=== PATIENT | female | born 1975 | race Caucasian/White ===

== ENCOUNTER → 2020-03-05 | Outpatient (CLI) | payer SELFPAY | END | disposition home or self-care (01) | LOC: MTDU 17:19 | PROVIDERS: PCP Family Medicine | DX: Z20.828 Contact with and (suspected) exposure to other viral communicable diseases (principal) | CPT/HCPCS: 87635; C9803; U0003 ==

== ENCOUNTER 2020-12-27 15:09 | Emergency (ER) | payer OTHER, SELFPAY ==
[2020-12-27 15:12] VITALS: BP 157/102; PULSE 91; RESP 23; TEMP 36.9; O2SAT 100; BMI 26.9
[2020-12-27 15:21] VITALS: O2SAT 99
--- NOTE | 2020-12-27 15:21 | EKG12_ITS ---
Test Reason : CP Blood Pressure : / mmHG Vent. Rate : 094 BPM Atrial Rate : 094 BPM P-R Int : 110 ms QRS Dur : 074 ms QT Int : 362 ms P-R-T Axes : 062 050 037 degrees QTc Int : 452 ms Sinus rhythm with short [place] Otherwise normal ECG Confirmed by DAMIAN MACEDO, ELDA ([id number]), primer expeditor and drier HOANG YEE ([id number]) on 12/30/2020 9:37:00 AM Referred By: ADARSH Confirmed By:ELDA SALGADO MD
--- NOTE | 2020-12-27 15:21 | CT_ITS ---
STUDY: CTA CHEST REASON FOR EXAM: Female, 45 years old. chest pain RADIATION DOSAGE (If Supplied By Facility): CTDIvol = ( 7.17 ) mGy, DLP = ( 247.81 ) mGycm TECHNIQUE: The examination was performed with the intravenous administration of IV 100mL Isovue-370. Post-processing of the angiographic images was performed, with multiplanar reformation and 3D reconstruction. Individualized dose optimization techniques were used for this CT. COMPARISON: None. FINDINGS: Normal enhancement of the main pulmonary artery and right and left pulmonary arteries. Normal enhancement of the bilateral peripheral pulmonary arteries. There is no demonstrated pulmonary embolism. Mild atherosclerosis of the descending thoracic aorta and origin of the left subclavian artery. There is no demonstrated aortic dissection. Normal heart and pericardium. Normal mediastinum. Normal hilar regions. Normal visualized trachea and bronchi. The lungs are hyper expanded, with flattening of the hemidiaphragms. Mild emphysematous changes predominantly in the upper lungs. Mild atelectasis in the lung bases. Focal area of hyperlucency of the medial left lower lobe with artery extending from this hyperlucent segment of the lateral descending thoracic aorta (pulmonary sequestration). There are calcifications and dilated bronchi in the medial left lower lobe. Normal pleura. Normal chest wall structures. No destructive bony process. There are surgical clips in the gallbladder fossa consistent with a prior cholecystectomy. CT/CTA Chest W/WO Contrast IMPRESSION: 1. No central or segmental pulmonary embolism. 2. Mild centrilobular emphysema. 3. Medial left lower lobe pulmonary sequestration. Nonemergent surgical consultation recommended. Electronically Signed: David Jennings MD ([place]) at 16:42 EDT , Service support ,
--- NOTE | 2020-12-27 15:23 | EDS_ITS ---
HPI History of Present Illness Chief Complaint: Chest Pain Detail of Chief Complaint: Patient presents with pain in her upper back x4 days Informant: patient Narrative Narrative: Patient presents with pain in her upper back x4 days. At times with movement she will have the pain radiate through the front of her chest. She denies any injury to her back but does have history of chronic back pain. Patient states that the pain initially woke her up from sleep. Today she try to go to work but felt short of breath and lightheaded so they called the squad for her. She is never had pain like this before. No history of PE or DVT. No fam shad history of aortic aneurysms or dissections. Patient states that her granddaughter had RSV about 3 to 4 weeks ago and really seem to get sick at that time. She does complain of a slight cough which is chronic. Her cough been nonproductive. She is had no fevers. Currently rates her pain a 6 out of 10 and much worse with breathing and movement. Prior similar symptoms: No PFSH PFSH Medical History (Updated 12/27/20 @ 17:[address] Theodore Hammonds, DO) Cholecystectomy planned Mitral valve prolapse Home Medications paroxetine HCl [Paxil] 60 mg PO DAILY 12/27/20 [History Last Taken Unknown] quetiapine 25 mg PO QHS 12/27/20 [History Last Taken Unknown] Allergy/AdvReac Type Severity Reaction Status Date / Time alprazolam [From Xanax] Allergy Vomiting Verified 12/27/20 15:10 codeine Allergy Other Verified 12/27/20 15:10 Surgical History (Updated 12/27/20 @ 15:16 by Renee Faulkner) H/O: hysterectomy Social History Smoking Status: Current every day smoker tobacco type: cigarettes ROS ROS ED Constitutional Constitutional ED: Reports systems reviewed and no addt'l complaints, except as documented; Denies body ache(s), change in weight or chills Eyes Eyes: Denies acute decrease in peripheral vision, change in vision, double vision or loss of vision ENT ENT ED: Reports none; Denies ear pain, lip swelling, loss taste/smell, neck pain, otalgia or sore throat Cardiovascular Cardiovascular: Reports none and chest pain; Denies abdominal pain, chest pain with activity, leg edema, lightheadedness, palpitations, rapid heart rate or syncope Respiratory/Chest Respiratory/Chest: Reports none, cough and dyspnea; Denies change in mental status, dry cough, hemoptysis, shortness of breath at rest or shortness of breath with exertion Gastrointestinal Gastrointestinal: Reports none; Denies abdominal pain, change in stool character, diarrhea, hematemesis, hematochezia, melena, rectal bleeding or vomiting Genitourinary Genitourinary ED: Reports none; Denies abdominal discomfort, anuria, dysuria, genital pain or polyuria Musculoskeletal Musculoskeletal: Reports none and back pain; Denies arthralgias, difficulty walking, extremity pain, muscle weakness or myalgias Integumentary Reports none; Denies abscess or rash Neurologic Neurologic: Reports none; Denies abnormal gait, confusion, focal weakness, frequent falls, headache(s), loss of vision, numbness, paresthesias, radicular pain, vertigo or weakness Psychiatric Psychiatric: Reports systems reviewed and no addt'l complaints, except as documented and none; Denies behavioral changes, confusion, difficulty concentrating, hallucinations, suicidal ideation, tactile hallucinations or visual hallucinations Endocrine Endocrinology: Denies none, cold intolerance, excessive sweating, fatigue or heat intolerance Hematologic/Lymphatic Hematologic/Lymphatic: Reports none; Denies anemia, easy bleeding or easy bruising Allergic/Immunologic Allergic/Immunologic ED: Denies as per HPI, none, lip swelling, mouth swelling, throat swelling, tongue swelling or hives EXAM Physical Exam Const Vital Signs: 12/27/20 15:12 12/27/20 15:21 12/27/20 16:29 Temperature 98.4 F Temperature Source Temporal Pulse Rate 91 72 Respiratory Rate 23 H 16 Blood Pressure 157/102 H 147/92 H Blood Pressure Mean 120 110 Pulse Ox 100 99 98 Oxygen Delivery Method Room Air Room Air Room Air Positive well nourished and well developed General Appearance ED: well developed and NAD HEENT Reports TM's clear and moist mucous membranes normocephalic and atraumatic; Negative for trauma or tenderness Tympanic Membrane ED: Yes TM's clear Eyes PERRL and EOMs intact bilaterally General Eye ED: Negative for pale conjunctiva or scleral icterus Neck no lymphadenopathy, supple and no JVD General: Negative for tenderness Chest Wall inspection of chest normal and palpation of chest normal Chest: Negative for tenderness Resp normal respiratory effort and clear to auscultation bilaterally Effort and Inspection: Negative for respiratory distress or pain with movement Auscultation: Negative for rhonchi, wheezes or diminished lung sounds Cardio regular rate, regular rhythm, S1 normal heart sound, S2 normal heart sound and no murmurs Peripheral Pulses: pulses 2+ throughout GI normal to inspection, nondistended, normoactive bowel sounds, soft to palpation, non-tender, non-distended and no masses Back/Spine no CVA tenderness and no thoracic nor lumbar tenderness Back/Spine Narrative: Patient has tenderness palpation over the left upper thoracic paraspinal musculature that seems to reproduce her pain. Pain is located just medial to the scapula on the left. Extremity normal to inspection General Extremety ED: Negative for edema General Extremity: Negative for edema Neuro oriented x3, CN's II-XII intact bilaterally, no sensory deficits noted and gait normal Sensorium / Orientation: awake, alert, oriented to person, oriented to place and oriented to time Motor Exam: strength 5/5 throughout and strength abnormal Psych mental status grossly normal Skin no rashes or lesions noted and no wounds MDM MDM MDM Narrative Medical decision making narrative: Patient is now anything for pain in the emergency department. She was noted to have a pulmonary sequestration on the left which the patient is known about and has seen a locomotive repairer diesel for. I spoke with Dr. Hurley here the locomotive repairer diesel on-call who recommended outpatient follow-up with the cardiothoracic surgeon. I discussed case with Dr. Brizuela her primary care physician as well who will follow patient up and refer. At this point I do not feel patient is having acute coronary syndrome. She denies anything for pain for home. I suspect patient likely has musculoskeletal back pain or thoracic nerve impingement potentially. Lab Data Attestation: I reviewed the patient's lab results. Labs: Laboratory Results - last 24 hr 12/27/20 12/27/20 15:35 15:35 WBC 10.9 RBC 4.38 Hgb 12.9 Hct 38.4 MCV 87.7 MCH 29.5 MCHC 33.6 RDW Std Deviation 41.2 RDW Coeff of David 12.9 Plt Count 326 MPV 9.6 Immature Gran % (Auto) 0.500 Neut % (Auto) 64.1 Lymph % (Auto) 24.7 [place] % (Auto) 9.6 Eos % (Auto) 0.6 Baso % (Auto) 0.5 Absolute Neuts (auto) 7.0 Absolute Lymphs (auto) 2.68 Nucleated RBC % 0 Sodium 133 L Potassium 3.6 Chloride 97 L Carbon Dioxide 26.0 Anion Gap 10 BUN 8 Creatinine 0.81 Estim Creat Clear Calc 74.14 Est GFR (MDRD) Af Amer 98 Est GFR (MDRD) Non-Af 81 BUN/Creatinine Ratio 9.9 L Glucose 88 Calcium 9.9 Troponin I High Sens 4.0 Lipase 127 Radiography Chest X-Ray - ED: 1 View Diagnostic Testing: Radiology Impression Chest CTA 12/27/20 15:21 IMPRESSION: 1. No central or segmental pulmonary embolism. 2. Mild centrilobular emphysema. 3. Medial left lower lobe pulmonary sequestration. Nonemergent surgical consultation recommended. Electronically Signed: David Jennings MD ([place]) at 16:42 EDT , Service support , Chest X-Ray 12/27/20 16:05 IMPRESSION: 1. Left lower lobe atelectasis versus early infiltrate. Electronically Signed: David Jennings MD ([place]) at 16:25 EDT , Service support , 1 view chest x-ray obtained interpreted by myself as increased markings left lower lobe suspect atelectasis. Radiology in agreement although they cannot rule out early infiltrate. EKG Initial EKG: Attestation: I personally reviewed and interpreted this EKG as follows: Comments: Sinus rhythm with a ventricular rate of 94 bpm with short [place] Discharge Plan Triage Chief Complaint: Chest Pain ED Provider: Theodore Hammonds Dx/Rx/DC Orders Clinical Impression: Back pain, Chest pain Instructions: ED Back Pain (Acute or Chronic), ED Chest Pain, Uncertain Cause Prescriptions: No Action quetiapine 25 mg tablet 25 mg PO QHS RF: 0 paroxetine HCl [Paxil] 30 mg tablet 60 mg PO DAILY RF: 0 Primary Care Provider: Colby Brizuela Referrals: Colby Brizuela MD [Primary Care Provider] - 3-5 Days Disposition Disposition: Home, Self Care
[2020-12-27] MEDS: 0.9% Normal Saline 1,000 ML 150 ML IV (15:41)
[2020-12-27 15:46] LABS: Absolute Lymphocyte Count 2.68 X10^3/uL (0.83-4.51); Basophil# 0.05 X10^3/uL; Basophil% 0.5 % (0-1); Eosinophil# 0.07 X10^3/uL; Eosinophils% 0.6 % (0-5); Hematocrit 38.4 % (37-47); Hemoglobin 12.9 g/dL (12.0-15.0); Lymphocyte # 2.68 X10^3/ul (0.83-4.51); Lymphocyte % 24.7 % (19-41); Mean Corp Hgb Conc 33.6 g/dL (32-36); Mean Corpuscular Hgb 29.5 pg (27.0-32.0); Mean Corpuscular Volume 87.7 fL (81-99); Mean Platelet Vol. 9.6 fl (6.2-12.0); Monocyte# 1.04 X10^3/uL; Monocyte% 9.6 % (0-10); NRBC Flagged by Analyzer 0 % (0-5); Neutrophil # 6.98 X10^3/uL (2.7-7.7); Neutrophil % 64.1 % (47-70); Platelet Count 326 K/mm3 (150-450); RBC Distribution Width CV 12.9 % (11.6-14.6); RBC Distribution Width SD 41.2 fl (35.1-43.9); Red Blood Count 4.38 M/mm3 (4.2-5.4); White Blood Count 10.9 K/mm3 (4.4-11.0)
--- NOTE | 2020-12-27 16:05 | RAD_ITS ---
STUDY: X-RAY CHEST REASON FOR EXAM: Female, 45 years old. chest pain TECHNIQUE: AP COMPARISON: 08/27/2012 FINDINGS: There is slight reticulation projecting over the left lung base, new since the prior study. There is no demonstrated pleural abnormality. Normal size heart. Normal mediastinum and mckinley. Normal visualized pulmonary arteries. Normal visualized aortic arch and descending thoracic aorta. No acute bony process. There is no demonstrated abnormality of the visualized soft tissue structures of the upper abdomen. RAD/Chest 1 View (Portable) IMPRESSION: 1. Left lower lobe atelectasis versus early infiltrate. Electronically Signed: David Jennings MD ([place]) at 16:25 EDT , Service support ,
[2020-12-27 16:17] LABS: Anion Gap 10 (5-15); BUN 8 mg/dL (7-18); BUN/Creat Ratio 9.9 RATIO (10-20); Calcium,Total 9.9 mg/dL (8.5-10.1); Chloride 97 mmol/L (98-107); Creatinine, Serum 0.81 mg/dL (0.55-1.02); EST Glomerular Filtration Rate 81 mL/min (>60); Est Glom Filt Rate - Afr Amer 98 mL/min (>60); Estimated Creatinine Clearance 74.14 ml/min; Glucose 88 mg/dL (74-106); Lipase 127 U/L (73-393); Potassium 3.6 mmol/L (3.5-5.1); Sodium Level 133 mmol/L (136-145)
[2020-12-27 16:29] VITALS: BP 147/92; PULSE 72; RESP 16; O2SAT 98
[2020-12-27 17:24] VITALS: BP 155/93; PULSE 82; RESP 19; O2SAT 97
== END 2020-12-27 17:30 | disposition home or self-care (01) ==
PROVIDERS: Emergency Provider Emergency Medicine; PCP Family Medicine
DX: M54.6 Pain in thoracic spine (principal); R07.9 Chest pain, unspecified; F17.210 Nicotine dependence, cigarettes, uncomplicated
CPT/HCPCS: 71045; 71275; 80048; 83690; 84484; 85025; 87426; 93005; 96360; 96361; 99285; Q9967; A4216

== ENCOUNTER → 2021-01-13 07:54 | Outpatient (CLI) | payer OTHER, SELFPAY ==
[2020-12-27 15:12] VITALS: BMI 26.9
--- NOTE | 2021-01-13 07:58 | RAD_ITS ---
STUDY: X-RAY - THORACIC SPINE REASON FOR EXAM: Female, 45 years old. BACK PAIN TECHNIQUE: 3 view(s) of the thoracic spine were obtained. COMPARISON: None. FINDINGS: Normal kyphosis of the thoracic spine. There is no substantial scoliosis. There is demineralization of the thoracic spine with endplate spondylosis. There is multilevel disc space narrowing of the thoracic spine. The soft tissue structures are unremarkable. RAD/Thoracic Spine 3 Views IMPRESSION: Multilevel disc space narrowing and spondylosis. Electronically Signed: Juanito Chacon MD at 15:02 EDT , Service support ,
== END ==
LOC: RAD 07:57
PROVIDERS: PCP Family Medicine; Referring Provider Anesthesiology Pain Medicine; Visit Provider Anesthesiology Pain Medicine
DX: M54.6 Pain in thoracic spine (principal)
CPT/HCPCS: 72072

== ENCOUNTER 2023-07-05 17:30 | Emergency (ER) | payer OTHER, SELFPAY ==
[2023-07-05 17:32] VITALS: BP 138/91; PULSE 91; RESP 16; TEMP 36.6; O2SAT 99; BMI 26.2
--- NOTE | 2023-07-05 17:39 | ED.RN ---
PT STATES SHE DOES NOT WANT SEEN AFTER BP OF 138/91. PT STATES SHE WORKS [facility] [employer], WILL RE CHECK PRESSURES AND RETURN FOR ANY CONCERNS.
--- OUTSIDE RECORDS SUMMARY | 2023-07-05 18:10 | XMS RPT_ITS | CCD ---
Author Name Unknown Address [address] [place] [address] Organization [facility] Care Team Providers Care Brand Activation Manager Name Role Phone Peewee Brizuela MD Primary Care Provider [phone] CARROL TAYLOR Attending Unavailable PEEWEE BRIZUELA Primary Care Unavailable Peewee Brizuela MD Primary Care Provider [phone] DOM MCFADDEN Attending Unavailable DOM MCFADDEN Referring Unavailable PEEWEE BRIZUELA Primary Care Unavailable DOM MCFADDEN Referring Unavailable PEEWEE BRIZUELA Primary Care Unavailable LESA, DOM T Referring Unavailable PEEWEE BRIZUELA Primary Care Unavailable HOANG WEATHERS Attending Unavailable LESA DOM Saud Referring Unavailable CHATA, PEEWEE Addison Primary Care Unavailable CHATA, PEEWEE Addison Primary Care Unavailable PEEWEE BRIZUELA Primary Care Unavailable PEEWEE BRIZUELA Attending Unavailable PEEWEE BRIZUELA Primary Care Unavailable PEEWEE BRIZUELA Referring Unavailable CHATA, PEEWEE Addison Referring Unavailable CHATA, PEEWEE Addison Primary Care Unavailable HOANG WEATHERS Referring Unavailable CHATA, PEEWEE Addison Primary Care Unavailable PEEWEE BRIZUELA Primary Care Unavailable PEEWEE BRIZUELA Attending Unavailable LESA, DOM T Attending Unavailable PEEWEE BRIZUELA Primary Care Unavailable PEEWEE BRIZUELA Referring Unavailable DOM MCFADDEN Attending Unavailable PEEWEE BRIZUELA Primary Care Unavailable PEEWEE BRIZUELA Primary Care Unavailable PEEWEE BRIZUELA Referring Unavailable LESA, DOM T Referring Unavailable LESA, DOM T Attending Unavailable PEEWEE BRIZUELA Primary Care Unavailable PEEWEE BRIZUELA Primary Care Unavailable JACINTA MCNAIR Attending Unavailable PEEWEE BRIZUELA Primary Care Unavailable Allergies Allergy Classification Reported Allergen(s) Allergy Type Date of Onset Reaction(s) Facility (15 sources) ALPRAZolam; Translations: [ALPRAZOLAM] Drug Allergy 9 GI Upset [facility] (15 sources) Codeine; Translations: [CODEINE] Drug Allergy 1 Vomiting [facility] Work Phone: (15 sources) Morphinan opioid; Translations: [OPIOIDS - MORPHINE ANALOGUES] Propensity to adverse reactions to drug 9 Contraindicatio n-Medical Surgical [facility] Work Phone: (15 sources) Propoxyphene N-Acetaminophen; Translations: [PROPOXYPHENE N-ACETAMINOPHEN] Drug Allergy 3 GI Upset [facility] Medications Current Medications Medication Drug Class(es) Dates Sig (Normalized) Sig (Original) amoxicillin 875 mg / clavulanate 125 mg oral tablet (1 source) Penicillin-class Antibacterial Start: 03-22-2023 End: 03-27-2023 take 1 tablet by mouth twice daily amoxicillin-clavulan ic acid (AUGMENTIN) 875-125 mg per tablet Indications: Sinobronchitis Take 1 tablet by mouth two times a day for 5 days. 10 tablet 0 03/22/2023 03/27/2023 Active Completed/Discontinued Medications Medication Drug Class(es) Dates Sig (Normalized) Sig (Original) [id number] 200 actuat albuterol 0.09 mg/actuat metered dose inhaler (9 sources) beta2-Adrenergic Agonist Start: 03-22-2023 take 2 puff(s) by inhalation every four hours as needed for wheezing albuterol HFA (PROVENTIL HFA, VENTOLIN HFA) 90 mcg/actuation inhaler Indications: Sinobronchitis Inhale 2 Puffs as instructed every 4 hours as needed for wheezing/shortness of breath. 1 Each 0 03/22/2023 Active Problems Active Problems Problem Classification Problem Date Documented Da te Episodic/Chronic Anxiety disorders (13 sources) Anxiety; Translations: [Anxiety disorder, unspecified] Onset: 9 11-02-2018 Chronic Disorders of lipid metabolism (3 sources) Mixed hyperlipidemia; Translations: [Mixed hyperlipidemia] Onset: 3 Chronic Esophageal disorders (15 sources) Gastroesophageal reflux disease; Translations: [Gastro-esophageal reflux disease without esophagitis] Onset: 3 Chronic Esophageal disorders (2 sources) Esophageal disorders; Translations: [Gastroesophageal reflux disease with esophagitis, unspecified whether hemorrhage] Onset: 3 Fluid and electrolyte disorders (1 source) Hypokalemia; Translations: [Hypokalemia] Episodic Gastritis and duodenitis (3 sources) Gastritis; Translations: [Gastritis, unspecified, without bleeding] Onset: 3 04-08-2023 Episodic Gastrointestinal hemorrhage (3 sources) Hematochezia; Translations: [Melena] Onset: 3 04-04-2023 Episodic Immunizations and screening for infectious disease (1 source) Encounter for screening for human immunodeficiency virus [HIV]; Translations: [Screening for HIV (human immunodeficiency virus)] Onset: 3 Episodic Nausea and vomiting (1 source) Nausea; Translations: [Nausea] Episodic Nutritional deficiencies (13 sources) Vitamin D deficiency; Translations: [Vitamin D deficiency, unspecified] Onset: 3 09-15-2012 Chronic Other gastrointestinal disorders (1 source) Abdominal bloating; Translations: [Abdominal distension (gaseous)] Episodic Other gastrointestinal disorders (3 sources) Epigastric fullness; Translations: [Epigastric swelling, mass or lump] Episodic Other gastrointestinal disorders (1 source) Acute constipation; Translations: [Constipation, unspecified] 04-08-2023 Episodic Other gastrointestinal disorders (1 source) Epigastric mass; Translations: [Epigastric swelling, mass or lump] 04-08-2023 Episodic Other gastrointestinal disorders (1 source) Constipation, unspecified; Translations: [Acute constipation] Onset: 3 Episodic Other gastrointestinal disorders (2 sources) Epigastric swelling, mass or lump; Translations: [Epigastric mass] Onset: 3 Episodic Other liver diseases (1 source) Alkaline phosphatase raised; Translations: [Abnormal levels of other serum enzymes] Episodic Other screening for suspected conditions (not mental disorders or infectious disease) (3 sources) Patient encounter status; Translations: [Encounter for screening for malignant neoplasm of colon] Episodic Other upper respiratory infections (1 source) Chronic sinusitis; Translations: [Chronic sinusitis, unspecified] 03-22-2023 Chronic Residual codes; unclassified (1 source) Flushing; Translations: [Flushing] Episodic Substance-related disorders (13 sources) History of substance abuse; Translations: [Other psychoactive substance abuse, in remission] 11-02-2018 Chronic Past or Other Problems Problem Classification Problem Date Documented Date Episodic/Chronic Abdominal pain (8 sources) Epigastric pain; Translations: [Epigastric pain] Onset: 10-05-2022 Episodic Other circulatory disease (1 source) Other specified symptoms and signs involving the circulatory and respiratory systems; Translations: [Chronic throat clearing] Onset: 10-06-2022 Episodic Other connective tissue disease (13 sources) Tendinitis of hip; Translations: [Other specified enthesopathies of unspecified lower limb, excluding foot] Onset: 11-06-2012 11-06-2012 Episodic Other disorders of stomach and duodenum (1 source) Other diseases of stomach and duodenum; Translations: [Retained food in stomach] Onset: 10-06-2022 Episodic Residual codes; unclassified (1 source) Flushing; Translations: [Hot flashes] Onset: 08-16-2022 Episodic Results Test Name Value Interpretation Reference Range Facil ity Vital Signs Date Time Vital Sign Value Performing Clinician Parminder ram 04-08-2023 15:57-0400 Body height 162.6 cm Peewee Brizuela MD Work Phone: [facility] 04-08-2023 15:57-0400 Body temperature 97.81 [degF] Peewee Brizuela MD Work Phone: [facility] 04-08-2023 15:57-0400 Body weight 68.95 kg Peewee Brizuela MD Work Phone: [facility] 04-08-2023 15:57-0400 Diastolic blood pressure 78 mm[Hg] Peewee Brizuela MD Work Phone: [facility] 04-08-2023 15:57-0400 Heart rate 79 /min Peewee Brizuela MD Work Phone: [facility] 04-08-2023 15:57-0400 SaO2% (BldA) [Mass fraction] 99 % Peewee Brizuela MD Work Phone: [facility] 04-08-2023 15:57-0400 Systolic blood pressure 120 mm[Hg] Peewee Brizuela MD Work Phone: [facility] 03-22-2023 19:57-0400 Body temperature 98.1 [degF] Jacinta Praisler-Wood COAT PRESSER.COMPUTER SYSTEMS AUDITOR Work Phone: [facility] 03-22-2023 19:57-0400 Body weight 68.04 kg Jacinta Praisler-Wood COAT PRESSER.COMPUTER SYSTEMS AUDITOR Work Phone: [facility] 03-22-2023 19:57-0400 Diastolic blood pressure 72 mm[Hg] Jacinta Praisler-Wood COAT PRESSER.COMPUTER SYSTEMS AUDITOR Work Phone: [facility] 03-22-2023 19:57-0400 Heart rate 86 /min Jacinta Praisler-Wood COAT PRESSER.COMPUTER SYSTEMS AUDITOR Work Phone: [facility] 03-22-2023 19:57-0400 Respiratory rate 16 /min Jacinta Praisler-Wood COAT PRESSER.COMPUTER SYSTEMS AUDITOR Work Phone: [facility] 03-22-2023 19:57-0400 SaO2% (BldA) [Mass fraction] 97 % Jacinta Praisler-Wood COAT PRESSER.COMPUTER SYSTEMS AUDITOR Work Phone: [facility] 03-22-2023 19:57-0400 Systolic blood pressure 122 mm[Hg] Jacinta Praisler-Wood COAT PRESSER.COMPUTER SYSTEMS AUDITOR Work Phone: [facility] 09-28-2022 10:20-0400 Diastolic blood pressure 59 mm[Hg] Dmo Mcfadden MD Work Phone: [facility] 09-28-2022 10:20-0400 Heart rate 93 /min Dom Mcfadden MD Work Phone: [facility] 09-28-2022 10:20-0400 Respiratory rate 16 /min Dom Mcfadden MD Work Phone: [facility] 09-28-2022 10:20-0400 SaO2% (BldA) [Mass fraction] 96 % Dom Mcfadden MD Work Phone: [facility] 09-28-2022 10:20-0400 Systolic blood pressure 104 mm[Hg] Dom Mcfadden MD Work Phone: [facility] 09-28-2022 08:32-0400 Body temperature 97.2 [degF] Dom Mcfadden MD Work Phone: [facility] 09-28-2022 08:32-0400 Body weight 66.7 kg Dom Mcfadden MD Work Phone: [facility] 08-12-2022 15:16-0500 Body height 162.6 cm Dom Mcfadden MD Work Phone: [facility] 08-12-2022 15:16-0500 Body temperature 98.1 [degF] Dom Mcfadden MD Work Phone: [facility] 08-12-2022 15:16-0500 Body weight 66.68 kg Dom Mcfadden MD Work Phone: [facility] 08-12-2022 15:16-0500 Diastolic blood pressure 70 mm[Hg] Dom Mcfadden MD Work Phone: [facility] 08-12-2022 15:16-0500 Heart rate 104 /min Dom Mcfadden MD Work Phone: [facility] 08-12-2022 15:16-0500 SaO2% (BldA) [Mass fraction] 96 % Dom Mcfadden MD Work Phone: [facility] 08-12-2022 15:16-0500 Systolic blood pressure 108 mm[Hg] Dom Mcfadden MD Work Phone: [facility] 08-05-2022 14:58-0500 Body height 162.6 cm Peewee Brizuela MD Work Phone: [facility] 08-05-2022 14:58-0500 Body weight 67.13 kg Peewee Brizuela MD Work Phone: [facility] 08-05-2022 14:58-0500 Diastolic blood pressure 86 mm[Hg] Peewee Brizuela MD Work Phone: [facility] 08-05-2022 14:58-0500 Heart rate 91 /min Peewee Brizuela MD Work Phone: [facility] 08-05-2022 14:58-0500 SaO2% (BldA) [Mass fraction] 96 % Peewee Brizuela MD Work Phone: [facility] 08-05-2022 14:58-0500 Systolic blood pressure 128 mm[Hg] Peewee Brizuela MD Work Phone: [facility] 10-05-2021 14:53-0400 Body height 163 cm Maggie Ashford COAT PRESSER.COMPUTER SYSTEMS AUDITOR Work Phone: [facility] 10-05-2021 14:53-0400 Body weight 69.85 kg Maggie Ashford COAT PRESSER.COMPUTER SYSTEMS AUDITOR Work Phone: [facility] 10-05-2021 14:53-0400 Diastolic blood pressure 80 mm[Hg] Maggie Ashford COAT PRESSER.COMPUTER SYSTEMS AUDITOR Work Phone: [facility] 10-05-2021 14:53-0400 Heart rate 83 /min Maggie Ashford COAT PRESSER.COMPUTER SYSTEMS AUDITOR Work Phone: [facility] 10-05-2021 14:53-0400 SaO2% (BldA) [Mass fraction] 97 % Maggie Ashford COAT PRESSER.COMPUTER SYSTEMS AUDITOR Work Phone: [facility] 10-05-2021 14:53-0400 Systolic blood pressure 116 mm[Hg] Maggie Ashford COAT PRESSER.COMPUTER SYSTEMS AUDITOR Work Phone: [facility] 10-05-2021 12:57-0400 Diastolic blood pressure 74 mm[Hg] Mindy Haagen COAT PRESSER.COMPUTER SYSTEMS AUDITOR Work Phone: [facility] 10-05-2021 12:57-0400 Heart rate 79 /min Mindy Haagen COAT PRESSER.COMPUTER SYSTEMS AUDITOR Work Phone: [facility] 10-05-2021 12:57-0400 Respiratory rate 18 /min Mindy Haagen COAT PRESSER.COMPUTER SYSTEMS AUDITOR Work Phone: [facility] 10-05-2021 12:57-0400 SaO2% (BldA) [Mass fraction] 98 % Mindy Haagen COAT PRESSER.COMPUTER SYSTEMS AUDITOR Work Phone: [facility] 10-05-2021 12:57-0400 Systolic blood pressure 112 mm[Hg] Mindy Pierce APRN.CNP Work Phone: [facility] Encounters Encounter Date Encounter Type Care Provider Facility Start: 06-28-2023 End: 06-29-2023 ambulatory DOM MCFADDEN Facility:[facility] Start: 04-18-2023 End: 04-18-2023 ambulatory HOANG WEATHERS Facility:[facility] Start: 04-18-2023 End: 04-18-2023 Subsequent hospital visit by physician [facility] Work Phone: Nuclear Medicine Procedures Date Procedure Procedure Detail Performing Clinician Start: 04-18-2023 Gastric emptying imaging study Hoang worrell PA-C Work Phone: Start: 09-28-2022 Level iv surg pathology gross&microscopic exam Dom Mcfadden MD Work Phone: Start: 09-28-2022 Esophagogastroduodenoscopy transoral diagnostic Dom Mcfadden MD Work Phone: Start: 08-16-2022 Lipid 1996 panel - Serum or Plasma Jacinta Mcnair APRN.COMPUTER SYSTEMS AUDITOR Work Phone: Plan of Treatment Date Care Activity Detail Author Start: 08-17-2027 Lipid 1996 panel - S jean or Plasma Lipid Screening [facility] Start: 08-17-2027 LIPID SCREEN LIPID SCREEN [facility] Start: 04-08-2026 Diabetes Screening Diabetes Screenin g [facility] Start: 11-12-2025 LIPID SCREEN LIPID SCREEN [facility] Start: 08-16-2025 DIABETES SCREEN DIABETES SCREEN [facility] Start: 08-16-2025 Diabetes Screening Diabetes Screenin g [facility] Start: 04-08-2024 Covid-19 Vaccine (#1) Covid-19 Vacci ne (#1) [facility] Immunizations Immunization Date Immunization Notes Care Provider Fa cility 2020 influenza virus vacc ine, unspecified formulation Jacinta Mcnair APRN.COMPUTER SYSTEMS AUDITOR Work Phone: [facility] Payers Date Payer Category Payer Unknown [employer] [id number] 2021-Present [phone] [address] [place] [address] PPO [id number] 2021 [facility] [employer] [id number] 2021-Present [phone] [address] [place] [address] PPO [id number] 2021 Unknown [id number] Social History Date Type Detail Facility Start: 08-05-2022 [facility] Work Phone: History of tobacco use Cigarette Smoker [facility] Start: 10-05-2021 End: 04-08-2023 Alcohol intake Ex-drinker (finding) [facility] Start: 08-14-2018 End: 08-05-2022 Tobacco Comment had quit for 3 years total, started again 07/2018 [facility] Start: 1975 Sex Assigned At Not on file [facility] Start: 09-04-2021 End: 09-14-2021 Exposure to SARS-CoV-2 (event) Not sure [facility] Start: 08-05-2022 End: 10-06-2022 Cigarettes smoked current (pack per day) - Reported 1 [facility] Work Phone: Start: 08-05-2022 Tobacco use and exposure Smokeless tobacco non-user [facility] Start: 10-06-2022 End: 03-22-2023 Tobacco use panel [facility] Work Phone: National Score (1-10 0), lower number is lower risk 87 [facility] Work Phone: Clinical Notes 11-06-2012 to 06-29-2023 Chana Mercado, RT(R) - 04/18/2023 12:00 PM Peewee Chu MD - 04/08/2023 3:59 PM Helio Tovar MD - 04/04/2023 6:06 PM EDTPatient Duran Eason LPN - 08/12/2022 3:12 PM EST Note Date & Type Note Facility 06-29-2023 Note HNO ID: [id number] Author: DOM MCFADDEN MD Service: ? Author Type: Physician Type: Progress Notes Filed: 06/29/2023 06:03 Note Text: FOLLOW UP VISIT - ENDOSCOPY NAME: Jo Ann Do [facility] NO.: [id number] DATE OF SERVICE: June 29, 2023 : 1975 REFERRING PHYSICIAN: Peewee Brizuela MD Jo Ann is a patient I am following for epigastric pain and GERD. I had also recommended a screening colonoscopy, which patient declined. Per my HANDP from 08/12/22: The patient is a 47 year old female referred for endoscopy. Jo Ann notes no history of colon complaints. The patient notes the following upper complaints: Jo Ann notes abdominal pain. The pain occurs in the following locations: epigastric region . Jo Ann notes heartburn. Jo Ann denies dysphagia. Jo Ann denies a history of ulcers/ peptic ulcer disease. She notes nausea. Jo Ann has not undergone prior endoscopy. She denies a family history of colon cancer. The patient notes a mass in her upper abdomen. She feels this is growing. She feels this is causing her nausea and reflux. She is worried this is a malignancy. She was seen by Dr. Brizuela. She had a CT scan in the abdomen in 2019. She was seen by plastic surgery in the past and was told this was fatty tissue. She underwent CT scan at that time which demonstrated: 1. No suspicious anterior abdominal wall cystic or solid mass, lipoma or hernia identified. 2. Incidental note made of a nonobstructing right upper quadrant enteric enteric intussusception. 3. 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 4. Significant degenerative changes at the level of T10/T11. The patient is being seen by me today at the request of Dr. Peewee Brizuela MD for my opinion and advice regarding epigastric pain, need for screening colonoscopy, and mass most likely lipoma. I performed upper endoscopy on 09/28/22. Findings per operative report showed: - Normal examined jejunum. - Normal examined duodenum. - Gastritis. Biopsied. - A medium amount of food (residue) in the stomach. - Normal lower third of esophagus. Biopsied. - Normal middle third of esophagus. Biopsied. - Laryngeal edema was found. Pathology demonstrated: FINAL DIAGNOSIS A. Stomach, antrum, biopsy -Gastric antral mucosa with chronic inactive gastritis -Negative for Helicobacter organisms by immunohistochemistry B. Esophagus, distal, biopsy -Squamocolumnar mucosa with intestinal metaplasia (see comment) -Negative for dysplasia C. Esophagus, mid, biopsy -Squamous mucosa with active esophagitis (see comment) -No fungal organisms present on PAS/D special stain (see comment) Diagnosis Comment An immunohistochemical stain for Helicobacter performed on the stomach biopsy (block A1) is negative for the organisms. Microscopic examination of the distal esophagus (part B) demonstrates squamocolumnar mucosa with intestinal metaplasia. There is no evidence of dysplasia. In the appropriate clinical and endoscopic setting, this is compatible with Abbasi esophagus. Microscopic examination of the mid esophageal biopsy (part C) demonstrates squamous mucosa with intraepithelial neutrophils. There is no evidence of fungal organisms as confirmed by a PAS/D special stain performed on block C1. No viral inclusions are identified. Clinical correlation is required. As she was on a proton pump inhibitor and had gastric and esophageal irritation at the time I recommended adding Carafate. The patient understood that she was supposed to stop taking the Protonix and take Carafate and lieu of Protonix. She is still noting epigastric and reflux symptoms. She continues to smoke. Patient continues to note concern over sensation of fatty fullness in abdomen and wanting to know what can be done regarding this, states it is getting larger. CT scan from 08/17/22 did not mention any masses or acute pathology. She was seen by physician reproductive healthcare assistant Honag Weathers in follow-up in October 2022. It was recommended she continue Protonix at that time in addition to Carafate. Given her questions of fullness a gastric emptying study was ordered. This was obtained on April 18, 2023. It demonstrated: IMPRESSION: DELAYED RATE OF GASTRIC EMPTYING OF SOLID MEAL. 11-20% GASTRIC RETENTION AT 4 HOURS IS CONSISTENT WITH MILD GASTROPARESIS. The patient continues to smoke and have stress. She continues to have epigastric symptoms and complaint of abdominal bloating. She is still just taking Carafate. VITALS: Blood pressure 124/80, pulse 110, temperature 36.5 ?C (97.7 ?F), height 162.6 cm (5' 4 ), weight 69.4 kg (153 lb), SpO2 96%. General: patient is alert, cooperative, pleasant and in no acute distress On examination, the abdomen is benign. +mild diffuse fullness mid anterior abdomen without discrete mass. No hernia or diastasi (more content not included)... [facility] 04-18-2023 Note HNO ID: [id number] Author: Chana Mercado RT(R) Service: Nuclear Medicine Author Type: Technologist Type: Progress Notes Filed: 04/18/2023 4:03 PM Note Text: RADIOLOGY SERVICE PROGRESS NOTE SERVICE DATE: 04/18/2023 SERVICE TIME: 11:55 AM PATIENT IDENTITY VERIFICATION COMPLETED USING TWO (2) STANDARD IDENTIFIERS: Name and Date of confirmed by patient verbally FALL SCREENING: Has the patient had 2 falls in the last year or 1 fall with injury or currently using an Ambulatory Assistive Device (Walker, Cane, Wheelchair, Crutches, etc.)? No PATIENT GENDER DATA: .female : No status: No ALLERGIES: Reviewed and unchanged MEDICATIONS REVIEWED: No PATIENT RELEVANT IMPLANT DATA REVIEWED: Not Applicable CREATININE: Creatinine Date Value Ref Range Status 04/08/2023 0.77 0.58 - 0.96 mg/dL Final 08/16/2022 0.70 0.58 - 0.96 mg/dL Final 11/12/2020 0.68 0.58 - 0.96 mg/dL Final Estimated Glomerular Filtration Rate Date Value Ref Range Status 04/08/2023 95 >=60 mL/min/1.73m? Final Comment: Estimated Glomerular Filtration Rate (eGFR) is calculated using the 2020 CKD-EPI creatinine equation. This equation utilizes serum creatinine, sex, and age as parameters. The creatinine assay has traceable calibration to isotope dilution-mass spectrometry. Refer to KDIGO guidelines for clinical interpretation. In patients with unstable renal function, e.g. those with acute kidney injury, the eGFR may not accurately reflect actual GFR. eGFR- Date Value Ref Range Status 11/12/2020 >60 Final P.O.C.T. RESULTS: N/A April 18, [address] PERFORMED: No IV SITE: NM only - not applicable, oral or physician administered agents given to patient POST EXAM PIV STATUS: Not applicable PROCEDURE TYPE: NM GET: 1.13 mCi Tc99m SULFUR COLLOID was administered orally via 4 ounces of Egg Beaters,1 1/2 pieces of toast, with 4 ounces of water orally ADMINISTRATION TIME: 12:05 PATIENT DISCHARGED TO: Ambulatory patient, left [place] department area. A Diagnostic radioactive procedure has taken place, with no further precautions necessary other than routine body substance precautions. More information regarding radiation safety can be found using this link: [email or web address]%[email or web address]%20Medi [email or web address] SIGNATURE: RT Herson(R) PATIENT NAME: Jo Ann Galvez DATE: April 18, 2023 TIME: 4:01 PM PAGER/CONTACT #: [facility] 04-18-2023 History of Present illness Narrative RADIOLOGY SERVICE PROGRESS NOTE SERVICE DATE: 04/18/2023 SERVICE TIME: 11:55 AM PATIENT IDENTITY VERIFICATION COMPLETED USING TWO (2) STANDARD IDENTIFIERS: Name and Date of confirmed by patient verbally FALL SCREENING: Has the patient had 2 falls in the last year or 1 fall with injury or currently using an Ambulatory Assistive Device (Walker, Cane, Wheelchair, Crutches, etc.)? No PATIENT GENDER DATA: .female : No status: No ALLERGIES: Reviewed and unchanged MEDICATIONS REVIEWED: No PATIENT RELEVANT IMPLANT DATA REVIEWED: Not Applicable CREATININE: Creatinine Date Value Ref Range Status 04/08/2023 0.77 0.58 - 0.96 mg/dL Final 08/16/2022 0.70 0.58 - 0.96 mg/dL Final 11/12/2020 0.68 0.58 - 0.96 mg/dL Final Estimated Glomerular Filtration Rate Date Value Ref Range Status 04/08/2023 95 >=60 mL/min/1.73m Final Comment: Estimated Glomerular Filtration Rate (eGFR) is calculated using the 2020 CKD-EPI creatinine equation. This equation utilizes serum creatinine, sex, and age as parameters. The creatinine assay has traceable calibration to isotope dilution-mass spectrometry. Refer to KDIGO guidelines for clinical interpretation. In patients with unstable renal function, e.g. those with acute kidney injury, the eGFR may not accurately reflect actual GFR. eGFR- Date Value Ref Range Status 11/12/2020 >60 Final P.O.C.T. RESULTS: N/A April 18, [address] PERFORMED: No IV SITE: NM only - not applicable, oral or physician administered agents given to patient POST EXAM PIV STATUS: Not applicable PROCEDURE TYPE: NM GET: 1.13 mCi Tc99m SULFUR COLLOID was administered orally via 4 ounces of Egg Beaters,1 1/2 pieces of toast, with 4 ounces of water orally ADMINISTRATION TIME: 12:05 PATIENT DISCHARGED TO: Ambulatory patient, left [place] department area. A Diagnostic radioactive procedure has taken place, with no further precautions necessary other than routine body substance precautions. More information regarding radiation safety can be found using this link: 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 attack, denies irregular heart beat, denies high cholesterol, denies poor circulation, denies heart failure, other cardiac issues, denies claudication, denies cold feet, denies peripheral arterial stent. Respiratory: The patient denies tuberculosis, denies pneumonia, denies frequent cough, denies pulmonary embolism, denies shortness of breath, and denies coughing up blood. Gastrointestinal: The patient denies difficulty swallowing, NOTES acid reflux, denies ulcers, denies vomiting, denies jaundice/hepatitis, NOTES gallbladder problems, denies black or tarry stools, denies hemorrhoids, denies bleeding from rectum, denies diverticulitis, denies constipation, denies diarrhea, denies loss of stool control, and denies hernias. Kidney/Bladder: The patient denies kidney stones, denies urine infections, and denies bloody urine. Skin: The patient denies a history of skin cancer, denies bleeding/changing moles, and denies a history of skin rash. Neurologic: The patient denies a history of epilepsy/convulsions, denies headaches, denies head/spinal injuries, and denies stroke/TIA. Psychiatric: The patient NOTES psychiatric medications, NOTES depression, and denies voices, NOTES substance abuse. Endocrine: The patient denies thyroid disorders, denies diabetes, and denies hormonal problems. Hematologic: The patient denies a history of bruising, denies bleeding, and denies anemia, denies blood clots. Infections: The patient denies a history of measles and mumps, denies rheumatic fever, and denies sexually transmitted diseases. Musculoskeletal: The patient NOTES back pain/injury, NOTES back problems, denies sciatica, denies knee/foot trouble, denies arthritis, or denies gout. When was patient's last Mammogram screening? N/A Last Colonoscopy: n/a Cici Eason LPN PHYSICAL EXAMINATION: General: The patient is 47 year old female, well nourished, well hydrated in no acute distress. The patient is oriented to time, place, and person. VITALS: Blood pressure 108/70, pulse 104, temperature 36.7 C (98.1 F), height 162.6 cm (5' 4 ), weight 66.7 kg (147 lb), SpO2 96 %. Body mass index is 25.23 kg/m . HEENT: Normal cephalic, ataumatic, pupils are equally round, sclera are anicteric, mucous membranes are moist, oropharynx is clear. Neck has no masses, asymmetry or lymphadenopathy. Thyroid is unremarkable. Respiratory: Clear to auscultation and percussion. Normal respiratory excursion and pattern. Cardiac: Examination is regular rate and rhythm. Abdominal exam: Soft, nontender, with no palpable masses. No hepatosplenomegaly. No palpable hernias. Patient notes an area of fullness in her upper abdomen. This feels consistent with subcutaneous fatty tissue without obviously being a true definable lipoma Rectal exam: exam deferred Extremities: no clubbing, cyanosis or edema. No adenopathy. Other: LABORATORY VALUES: As Noted RADIOLOGIC STUDIES: As Noted Assessment IMPRESSION: epigastric pain, need for screening colonoscopy, and mass most likely lipoma. PLAN: I plan to perform upper endoscopy. We discussed the risks and benefits of the planned endoscopy. I have informed the patient that complications can occur including failure to complete the endoscopy and perforation. The patient had the opportunity to ask questions concerning the planned endoscopy. My staff has also explained the procedure to the patient in understandable terms and has given the patient printed material concerning the procedure. The patient freely consents to surgery. I recommended colonoscopy which the patient declined. I plan to obtain a CT scan of the abdomen pelvis to assess at this area of firmness remains likely just subcutaneous fatty tissue and that there is no true masses in the area. Diagnoses: (K21.00) Gastroesophageal reflux disease with esophagitis without hemorrhage (R10.13) Epigastric pain (R19.06) Epigastric fullness My findings have been communicated to Dr. Peewee Brizuela MD via shared medical record. This note will be forwarded to Dr. Peewee Brizuela MD. Return to Clinic: The patient is instructed to follow-up with me after the testing has been completed. Dom Mcfadden MD Images from the original note were not included. HISTORY AND PHYSICAL Jo Ann Galvez 1975 REFERRING PHYSICIAN: Peewee Brizuela MD CHIEF COMPLAINT: Consult (Mass on abdomen) HPI: The patient is a 47 year old female referred for endoscopy. Jo Ann notes no history of colon complaints. The patient notes the following upper complaints: Jo Ann notes abdominal pain. The pain occurs in the following locations: epigastric region . Jo Ann notes heartburn. Jo Ann denies dysphagia. Jo Ann denies a history of ulcers/ peptic ulcer disease. She notes nausea. Jo Ann has not undergone prior endoscopy. She denies a family history of colon cancer. The patient notes a mass in her upper abdomen. She feels this is growing. She feels this is causing her nausea and reflux. She is worried this is a malignancy. She was seen by Dr. Brizuela. She had a CT scan in the abdomen in 2019. She was seen by plastic surgery in the past and was told this was fatty tissue. She underwent CT scan at that time which demonstrated: 1. No suspicious anterior abdominal wall cystic or solid mass, lipoma or hernia identified. 2. Incidental note made of a nonobstructing right upper quadrant enteric enteric intussusception. 3. 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 4. Significant degenerative changes at the level of T10/T11. The patient is being seen by me today at the request of Dr. Peewee Brizuela MD for my opinion and advice regarding epigastric pain, need for screening colonoscopy, and mass most likely lipoma. 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 Major depressive disorder Malnutrition (HCC) Mitral valve disorders(424.0) Schizoaffective disorder (HCC) Unspecified asthma(493.90) PAST SURGICAL HISTORY PAST SURGICAL HISTORY Procedure Laterality Date CHOLECYSTECTOMY HX 2017 DILATION & CURETTAGE DX&/THER NONOBSTETRIC Dilation & curettage LIG/TRNSXJ FLP TUBE ABDL/VAG APPR UNI/BI Tubal ligation PAST SURGICAL HISTORY OF leep TOTAL ABDOMINAL HYSTERECT W/WO RMVL TUBE OVARY Hysterectomy, JOHNNA second to adenomyosis CURRENT MEDICATIONS Current Outpatient Medications Medication Sig QUEtiapine (SEROQUEL) 100 mg tablet Take 100 mg by mouth daily at bedtime. sucralfate (CARAFATE) 1 gram tablet Take 1 tablet by mouth four times daily. PARoxetine (PAXIL) 20 mg tablet Take 1.5 tablets by mouth twice daily. No current facility-administered medications for this visit. ALLERGIES: Codeine, Darvocet A500 [Propoxyphene N-Acetaminophen], Opioids - Morphine Analogues, and Xanax [Alprazolam] PERSONAL HISTORY: SOCIAL HISTORY Social History Tobacco Use Smoking status: Every Day Packs/day: 1.00 Types: Cigarettes Smokeless tobacco: Never Tobacco comments: had quit for 3 years total, started again 07/2018 Vaping Use Vaping Use: Never used Substance Use Topics Alcohol use: Not Currently Drug use: Not Currently Comment: used heroin and cocaine in the past, last used in 2015 FAMILY HISTORY: FAMILY HISTORY FAMILY HISTORY Problem Relation Age of Onset No Known Problems Mother Ischemic Heart Disease Father had [facility]. blockages found in heart and carotid. after cardiac stents, had a stroke and . Carotid Disease Father No Known Problems Sister No Known Problems Brother No Known Problems Maternal Grandmother No Known Problems Maternal Grandfather other (spina bifida) Daughter No Known Problems Son REVIEW OF SYMPTOMS: The review of systems data was entered by the nurse and reviewed by oh Nursing Notes: Cici Eason LPN 08/12/2022 3:13 PM Signed REVIEW OF SYSTEMS: General: The patient denies fatigue, denies weight loss, NOTES weight gain, denies feeling hot, and denies feelings of cold. Eyes: The patient denies glaucoma, denies eye injury/surgery, wears glasses or contacts. Ear/Nose/Throat: The patient NOTES allergies, denies hayfever, denies ear infections, and denies bloody noses. Cardiovascular: The patient denies chest pain, NOTES heart disease, denies high blood pressure,denies cardiac stent, denies prior heart attack, denies irregular heart beat, denies high cholesterol, denies poor circulation, denies heart failure, other cardiac issues, denies claudication, denies cold feet, denies peripheral arterial stent. Respiratory: The patient denies tuberculosis, denies pneumonia, denies frequent cough, denies pulmonary embolism, denies shortness of breath, and denies coughing up blood. Gastrointestinal: The patient denies difficulty swallowing, NOTES acid reflux, denies ulcers, denies vomiting, denies jaundice/hepatitis, NOTES gallbladder problems, denies black or tarry stools, denies hemorrhoids, denies bleeding from rectum, denies diverticulitis, denies constipation, denies diarrhea, denies loss of stool control, and denies hernias. Kidney/Bladder: The patient denies kidney stones, denies urine infections, and denies bloody urine. Skin: The patient denies a history of skin cancer, denies bleeding/changing moles, and denies a history of skin rash. Neurologic: The patient denies a history of epilepsy/convulsions, denies headaches, denies head/spinal injuries, and denies stroke/TIA. Psychiatric: The patient NOTES psychiatric medications, NOTES depression, and denies voices, NOTES substance abuse. Endocrine: The patient denies thyroid disorders, denies diabetes, and denies hormonal problems. Hematologic: The patient denies a history of bruising, denies bleeding, and denies anemia, denies blood clots. Infections: The patient denies a history of measles and mumps, denies rheumatic fever, and denies sexually transmitted diseases. Musculoskeletal: The patient NOTES back pain/injury, NOTES back problems, denies sciatica, denies knee/foot trouble, denies arthritis, or denies gout. When was patient's last Mammogram screening? N/A Last Colonoscopy: n/a Cici Eason LPN PHYSICAL EXAMINATION: General: The patient is 47 year old female, well nourished, well hydrated in no acute distress. The patient is oriented to time, place, and person. VITALS: Blood pressure 108/70, pulse 104, temperature 36.7 C (98.1 F), height 162.6 cm (5' 4 ), weight 66.7 kg (147 lb), SpO2 96 %. Body mass index is 25.23 kg/m . HEENT: Normal cephalic, ataumatic, pupils are equally round, sclera are anicteric, mucous membranes are moist, oropharynx is clear. Neck has no masses, asymmetry or lymphadenopathy. Thyroid is unremarkable. Respiratory: Clear to auscultation and percussion. Normal respiratory excursion and pattern. Cardiac: Examination is regular rate and rhythm. Abdominal exam: Soft, nontender, with no palpable masses. No hepatosplenomegaly. No palpable hernias. Patient notes an area of fullness in her upper abdomen. This feels consistent with subcutaneous fatty tissue without obviously being a true definable lipoma Rectal exam: exam deferred Extremities: no clubbing, cyanosis or edema. No adenopathy. Other: LABORATORY VALUES: As Noted RADIOLOGIC STUDIES: As Noted Assessment IMPRESSION: epigastric pain, need for screening colonoscopy, and mass most likely lipoma. PLAN: I plan to perform upper endoscopy. We discussed the risks and benefits of the planned endoscopy. I have informed the patient that complications can occur including failure to complete the endoscopy and perforation. The patient had the opportunity to ask questions concerning the planned endoscopy. My staff has also explained the procedure to the patient in understandable terms and has given the patient printed material concerning the procedure. The patient freely consents to surgery. I recommended colonoscopy which the patient declined. I plan to obtain a CT scan of the abdomen pelvis to assess at this area of firmness remains likely just subcutaneous fatty tissue and that there is no true masses in the area. Diagnoses: (K21.00) Gastroesophageal reflux disease with esophagitis without hemorrhage (R10.13) Epigastric pain (R19.06) Epigastric fullness My findings have been communicated to Dr. Peewee Brizuela MD via shared medical record. This note will be forwarded to Dr. Peewee Brizuela MD. Return to Clinic: The patient is instructed to follow-up with me after the testing has been completed. Dom Mcfadden MD documented in this encounter [facility] 08-17-2022 Miscellaneous Notes Left detailed message with results/provider instructions on secure identified voicemail. Pt only to return call with any questions/concerns. Adal Melgoza LPN Labs show she is going through menopause. One blood enzyme the alk phos is up. Needs broken down. Her trigs are significantly elevated Potassium is low. Watch starches and carbs in the diet. Recheck fasting lipid, potassium fractionated alk phos and a1c in two weeks documented in this encounter [facility] 08-16-2022 Note HNO ID: [id number] Author: RT Paul(R) Service: ? Author Type: Certified Public Accountant Type: Progress Notes Filed: 08/16/2022 3:37 PM Note Text: Radiology Service Progress Note DATE OF SERVICE: August 16, 2022 TIME: 3:37 PM PATIENT IDENTITY VERIFICATION COMPLETED USING TWO (2) STANDARD IDENTIFIERS: Name and Date of confirmed by patient verbally. FALL SCREENING: Has the patient had 2 falls in the last year or 1 fall with injury or currently using an Ambulatory Assistive Device (Walker, Cane, Wheelchair, Crutches, etc.)? No PATIENT GENDER DATA: Female. status: : No status: NO. PATIENT RELEVANT IMPLANT DATA REVIEWED: Yes ALLERGIES: Reviewed and unchanged CONTRAST ALLERGY: NO. EXAM: CT -CONTRAST INDUCED NEPHROPATHY RISK FACTORS: Not applicable CREATININE: Creatinine Date Value Ref Range Status 11/12/2020 0.68 0.58 - 0.96 mg/dL Final 11/08/2018 0.64 0.58 - 0.96 mg/dL Final 09/13/2012 0.44 (L) 0.70 - 1.40 mg/dL Final eGFR-All Other Races Date Value Ref Range Status 11/12/2020 >60 . Final Comment: eGFR (Estimated GFR) Units of measure: mL/min/1.73 meters squared eGFR is derived from the reexpressed MDRD Study equation using the following parameters: serum creatinine, age, gender and race. The creatinine assay has been calibrated to be traceable to IDMS. An eGFR <60 mL/min/1.73m2 for >3 months is consistent with chronic kidney disease. Refer to KDOQI guidelines for clinical interpretation. In patients with unstable renal function, e.g. those with acute kidney injury, the eGFR may not accurately reflect actual GFR. eGFR- Date Value Ref Range Status 11/12/2020 >60 Final P.O.C.T. RESULTS: POC done: Yes, See Lab Tab August 16, 2022 TREATMENT: N/A PERIPHERAL IV DATA: Ambulatory: A peripheral IV was started in the Left antecubital site with a Angio cath: 22 gauge. RADIOLOGY DEPARTMENT: CT; Exam(s) Completed: Abdomen/Pelvis SIGNATURE: RT Colleen(R) PATIENT NAME: Jo Ann Galvez DATE: August 16, 2022 TIME: 3:37 PM [facility] 08-15-2022 Note HNO ID: [id number] Author: Dom Mcfadden MD Service: ? Author Type: Physician Type: Progress Notes Filed: 08/15/2022 7:05 AM Note Text: HISTORY AND PHYSICAL Jo Ann Galvez 1975 REFERRING PHYSICIAN: Peewee Brizuela MD CHIEF COMPLAINT: Consult (Mass on abdomen) HPI: The patient is a 47 year old female referred for endoscopy. Jo Ann notes no history of colon complaints. The patient notes the following upper complaints: Jo Ann notes abdominal pain. The pain occurs in the following locations: epigastric region . Jo Ann notes heartburn. Jo Ann denies dysphagia. Jo Ann denies a history of ulcers/ peptic ulcer disease. She notes nausea. Jo Ann has not undergone prior endoscopy. She denies a family history of colon cancer. The patient notes a mass in her upper abdomen. She feels this is growing. She feels this is causing her nausea and reflux. She is worried this is a malignancy. She was seen by Dr. Brizuela. She had a CT scan in the abdomen in 2019. She was seen by plastic surgery in the past and was told this was fatty tissue. She underwent CT scan at that time which demonstrated: 1. No suspicious anterior abdominal wall cystic or solid mass, lipoma or hernia identified. 2. Incidental note made of a nonobstructing right upper quadrant enteric enteric intussusception. 3. 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 4. Significant degenerative changes at the level of T10/T11. The patient is being seen by me today at the request of Dr. Peewee Brizuela MD for my opinion and advice regarding epigastric pain, need for screening colonoscopy, and mass most likely lipoma. 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 sucralfate (CARAFATE) 1 gram tablet Take 1 tablet by mouth four times daily. PARoxetine (PAXIL) 20 mg tablet Take 1.5 tablets by mouth twice daily. No current facility-administered medications for this visit. ALLERGIES: Codeine, Darvocet A500 [Propoxyphene N-Acetaminophen], Opioids - Morphine Analogues, and Xanax [Alprazolam] PERSONAL HISTORY: Social History Tobacco Use Smoking status: Every Day Packs/day: 1.00 Types: Cigarettes Smokeless tobacco: Never Tobacco comments: had quit for 3 years total, started again 07/2018 Vaping Use Vaping Use: Never used Substance Use Topics Alcohol use: Not Currently Drug use: Not Currently Comment: used heroin and cocaine in the past, last used in 2015 FAMILY HISTORY: FAMILY HISTORY Problem Relation Age of Onset No Known Problems Mother Ischemic Heart Disease Father had [place]. blockages found in heart and carotid. after cardiac stents, had a stroke and . Carotid Disease Father No Known Problems Sister No Known Problems Brother No Known Problems Maternal Grandmother No Known Problems Maternal Grandfather other (spina bifida) Daughter No Known Problems Son REVIEW OF SYMPTOMS: The review of systems data was entered by the nurse and reviewed by me Nursing Notes: Cici Eason LPN 08/12/2022 3:13 PM Signed REVIEW OF SYSTEMS: General: The patient denies fatigue, denies weight loss, NOTES weight gain, denies feeling hot, and denies feelings of cold. Eyes: The patient denies glaucoma, denies eye injury/surgery, wears glasses or contacts. Ear/Nose/Throat: The patient NOTES allergies, denies hayfever, denies ear infections, and denies bloody noses. Cardiovascular: The patient denies chest pain, NOTES heart disease, denies high blood pressure,denies cardiac stent, denies prior heart attack, denies irregular heart beat, denies high cholesterol, denies poor circulation, denies heart failure, other cardiac issues, denies claudication, denies cold feet, denies peripheral arterial stent. Respiratory: The patient denies tuberculosis, denies pneumonia, denies frequent cough, denies pulmonary embolism, denies shortness of breath, and denies coughing up blood. Gastrointestinal: The patient denies difficulty swallowing, NOTES acid reflux, denies ulcers, denies vomiting, denies jaundice/hepatitis, NOTES gallbladder problems, denies black or tarry stools, denies hemorrhoids, denies bleeding from rectum, denies diverticulitis, denies constipation (more content not included)... [facility] 08-15-2022 History of Present illness Narrative HISTORY AND PHYSICAL Jo Ann Do Cristobal 1975 REFERRING PHYSICIAN: Peewee Brizuela MD CHIEF COMPLAINT: Consult (Mass on abdomen) HPI: The patient is a 47 year old female referred for endoscopy. Jo Ann notes no history of colon complaints. The patient notes the following upper complaints: Jo Ann notes abdominal pain. The pain occurs in the following locations: epigastric region . Jo Ann notes heartburn. Jo Ann denies dysphagia. Jo Ann denies a history of ulcers/ peptic ulcer disease. She notes nausea. Jo Ann has not undergone prior endoscopy. She denies a family history of colon cancer. The patient notes a mass in her upper abdomen. She feels this is growing. She feels this is causing her nausea and reflux. She is worried this is a malignancy. She was seen by Dr. Brizuela. She had a CT scan in the abdomen in 2019. She was seen by plastic surgery in the past and was told this was fatty tissue. She underwent CT scan at that time which demonstrated: 1. No suspicious anterior abdominal wall cystic or solid mass, lipoma or hernia identified. 2. Incidental note made of a nonobstructing right upper quadrant enteric enteric intussusception. 3. 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 4. Significant degenerative changes at the level of T10/T11. The patient is being seen by me today at the request of Dr. Peewee Brizuela MD for my opinion and advice regarding epigastric pain, need for screening colonoscopy, and mass most likely lipoma. 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 sucralfate (CARAFATE) 1 gram tablet Take 1 tablet by mouth four times daily. PARoxetine (PAXIL) 20 mg tablet Take 1.5 tablets by mouth twice daily. No current facility-administered medications for this visit. ALLERGIES: Codeine, Darvocet A500 [Propoxyphene N-Acetaminophen], Opioids - Morphine Analogues, and Xanax [Alprazolam] PERSONAL HISTORY: Social History Tobacco Use Smoking status: Every Day Packs/day: 1.00 Types: Cigarettes Smokeless tobacco: Never Tobacco comments: had quit for 3 years total, started again 07/2018 Vaping Use Vaping Use: Never used Substance Use Topics Alcohol use: Not Currently Drug use: Not Currently Comment: used heroin and cocaine in the past, last used in 2016 FAMILY HISTORY: FAMILY HISTORY Problem Relation Age of Onset No Known Problems Mother Ischemic Heart Disease Father had [place]. blockages found in heart and carotid. after cardiac stents, had a stroke and . Carotid Disease Father No Known Problems Sister No Known Problems Brother No Known Problems Maternal Grandmother No Known Problems Maternal Grandfather other (spina bifida) Daughter No Known Problems Son REVIEW OF SYMPTOMS: The review of systems data was entered by the nurse and reviewed by me Nursing Notes: Cici DIANNA Eason 08/12/2022 3:13 PM Signed REVIEW OF SYSTEMS: General: The patient denies fatigue, denies weight loss, NOTES weight gain, denies feeling hot, and denies feelings of cold. Eyes: The patient denies glaucoma, denies eye injury/surgery, wears glasses or contacts. Ear/Nose/Throat: The patient NOTES allergies, denies hayfever, denies ear infections, and denies bloody noses. Cardiovascular: The patient denies chest pain, NOTES heart disease, denies high blood pressure,denies cardiac stent, denies prior heart attack, denies irregular heart beat, denies high cholesterol, denies poor circulation, denies heart failure, other cardiac issues, denies claudication, denies cold feet, denies peripheral arterial stent. Respiratory: The patient denies tuberculosis, denies pneumonia, denies frequent cough, denies pulmonary embolism, denies shortness of breath, and denies coughing up blood. Gastrointestinal: The patient denies difficulty swallowing, NOTES acid reflux, denies ulcers, denies vomiting, denies jaundice/hepatitis, NOTES gallbladder problems, denies black or tarry stools, denies hemorrhoids, denies bleeding from rectum, denies diverticulitis, denies constipation, denies diarrhea, denies loss of stool control, and denies hernias. Kidney/Bladder: The patient denies kidney stones, denies urine infections, and denies bloody urine. Skin: The patient denies a history of skin cancer, denies bleeding/changing moles, and denies a history of skin rash. Neurologic: The patient denies a history of epilepsy/convulsions, denies headaches, denies head/spinal injuries, and denies stroke/TIA. Psychiatric: The patient NOTES psychiatric medications, NOTES depression, and denies voices, NOTES substance abuse. Endocrine: The patient denies thyroid disorders, denies diabetes, and denies hormonal problems. Hematologic: The patient denies a history of bruising, denies bleeding, and denies anemia, denies blood clots. Infections: The patient denies a history of measles and mumps, denies rheumatic fever, and denies sexually transmitted diseases. Musculoskeletal: The patient NOTES back pain/injury, NOTES back problems, denies sciatica, denies knee/foot trouble, denies arthritis, or denies gout. When was patient's last Mammogram screening? N/A Last Colonoscopy: n/a Cici Eason LPN PHYSICAL EXAMINATION: General: The patient is 47 year old female, well nourished, well hydrated in no acute distress. The patient is oriented to time, place, and person. VITALS: Blood pressure 108/70, pulse 104, temperature 36.7 C (98.1 F), height 162.6 cm (5' 4 ), weight 66.7 kg (147 lb), SpO2 96 %. Body mass index is 25.23 kg/m . HEENT: Normal cephalic, ataumatic, pupils are equally round, sclera are anicteric, mucous membranes are moist, oropharynx is clear. Neck has no masses, asymmetry or lymphadenopathy. Thyroid is unremarkable. Respiratory: Clear to auscultation and percussion. Normal respiratory excursion and pattern. Cardiac: Examination is regular rate and rhythm. Abdominal exam: Soft, nontender, with no palpable masses. No hepatosplenomegaly. No palpable hernias. Patient notes an area of fullness in her upper abdomen. This feels consistent with subcutaneous fatty tissue without obviously being a true definable lipoma Rectal exam: exam deferred Extremities: no clubbing, cyanosis or edema. No adenopathy. Other: LABORATORY VALUES: As Noted RADIOLOGIC STUDIES: As Noted Assessment IMPRESSION: epigastric pain, need for screening colonoscopy, and mass most likely lipoma. PLAN: I plan to perform upper endoscopy. We discussed the risks and benefits of the planned endoscopy. I have informed the patient that complications can occur including failure to complete the endoscopy and perforation. The patient had the opportunity to ask questions concerning the planned endoscopy. My staff has also explained the procedure to the patient in understandable terms and has given the patient printed material concerning the procedure. The patient freely consents to surgery. I recommended colonoscopy which the patient declined. I plan to obtain a CT scan of the abdomen pelvis to assess at this area of firmness remains likely just subcutaneous fatty tissue and that there is no true masses in the area. Diagnoses: (K21.00) Gastroesophageal reflux disease with esophagitis without hemorrhage (R10.13) Epigastric pain (R19.06) Epigastric fullness My findings have been communicated to Dr. Peewee Brizuela MD via shared medical record. This note will be forwarded to Dr. Peewee Brizuela MD. Return to Clinic: The patient is instructed to follow-up with me after the testing has been completed. Dom Mcfadden MD documented in this encounter [facility] 08-12-2022 Nurse Note REVIEW OF SYSTEMS: General: The patient denies fatigue, denies weight loss, NOTES weight gain, denies feeling hot, and denies feelings of cold. Eyes: The patient denies glaucoma, denies eye injury/surgery, wears glasses or contacts. Ear/Nose/Throat: The patient NOTES allergies, denies hayfever, denies ear infections, and denies bloody noses. Cardiovascular: The patient denies chest pain, NOTES heart disease, denies high blood pressure,denies cardiac stent, denies prior heart attack, denies irregular heart beat, denies high cholesterol, denies poor circulation, denies heart failure, other cardiac issues, denies claudication, denies cold feet, denies peripheral arterial stent. Respiratory: The patient denies tuberculosis, denies pneumonia, denies frequent cough, denies pulmonary embolism, denies shortness of breath, and denies coughing up blood. Gastrointestinal: The patient denies difficulty swallowing, NOTES acid reflux, denies ulcers, denies vomiting, denies jaundice/hepatitis, NOTES gallbladder problems, denies black or tarry stools, denies hemorrhoids, denies bleeding from rectum, denies diverticulitis, denies constipation, denies diarrhea, denies loss of stool control, and denies hernias. Kidney/Bladder: The patient denies kidney stones, denies urine infections, and denies bloody urine. Skin: The patient denies a history of skin cancer, denies bleeding/changing moles, and denies a history of skin rash. Neurologic: The patient denies a history of epilepsy/convulsions, denies headaches, denies head/spinal injuries, and denies stroke/TIA. Psychiatric: The patient NOTES psychiatric medications, NOTES depression, and denies voices, NOTES substance abuse. Endocrine: The patient denies thyroid disorders, denies diabetes, and denies hormonal problems. Hematologic: The patient denies a history of bruising, denies bleeding, and denies anemia, denies blood clots. Infections: The patient denies a history of measles and mumps, denies rheumatic fever, and denies sexually transmitted diseases. Musculoskeletal: The patient NOTES back pain/injury, NOTES back problems, denies sciatica, denies knee/foot trouble, denies arthritis, or denies gout. When was patient's last Mammogram screening? N/A Last Colonoscopy: n/a Cici Eason LPN documented in this encounter [facility] 08-05-2022 Note HNO ID: [id number] Author: Peewee Brizuela MD Service: ? Author Type: Physician Type: Progress Notes Filed: 08/05/2022 3:31 PM Note Text: Patient presents with: Lump HPI: Patient presents today for office visit for mass in abdomen since 01/05/00 post Hysterectomy. Was told procedure caused it. Growth has become bigger and more painful over the last six months. Causing heartburn. Severe nausea. Denies vomiting. Having regular bowel movements. Colonoscopy was recommended back in October 2021. Never completed. No bowel changes. Was told previously it was fatty tissue and had seen a plastics surgeon for the same. No chest pain or shortness of breath Previously saw had ct in 2019 fo the abdomen for the same. Had discussed with surgery and recommended surgery follow up. She did not go. Also has seen pulmonary at [facility] regarding the pulmonary findings and he discussed that it was not an issue. 1. No suspicious anterior abdominal wall cystic or solid mass, lipoma or hernia identified. 2. Incidental note made of a nonobstructing right upper quadrant enteric enteric intussusception. 3. 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 4. Significant degenerative changes at the level of T10/T11. MEDICATIONS: Current Outpatient Medications Medication Sig QUEtiapine (SEROQUEL) 100 mg tablet Take 100 mg by mouth daily at bedtime. PARoxetine (PAXIL) 20 mg tablet Take 1.5 tablets by mouth twice daily. No current facility-administered medications for this visit. 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 blockages found in heart and carotid. after cardiac stents, had a stroke and . Carotid Disease Father No Known Problems Sister No Known Problems Brother No Known Problems Maternal Grandmother No Known Problems Maternal Grandfather other (spina bifida) Daughter No Known Problems Son Social History Tobacco Use Smoking status: Every Day Packs/day: 1.00 Types: Cigarettes Smokeless tobacco: Never Tobacco comments: had quit for 3 years total, started again 07/2018 Vaping Use Vaping Use: Never used Substance Use Topics Alcohol use: Not Currently Drug use: Not Currently Comment: used heroin and cocaine in the past, last used in 2016 Reviewed current medications, allergies, past medical history, surgical history, family history and social history today. REVIEW OF SYSTEMS Having hot flashes. Wants checked for menopause. All other reviewed and negative other than HPI. HEALTH MAINTENANCE: Reviewed health maintenance issues today and recommended the following in detail. MAMMOGRAM -rec COLORECTAL CANCER SCREENING -recommended. VITALS: BP 128/86 Pulse 91 Ht 162.6 cm (5' 4 ) Wt 67.1 kg (148 lb) SpO2 96% BMI 25.40 kg/m? Last 4 Encounter Wt Readings: Date: Wt: 10/05/2021 69.9 kg (154 lb) 01/13/2021 68.9 kg (152 lb) 12/29/2020 68 kg (150 lb) 12/01/2020 67.6 kg (149 lb) PHYSICAL EXAMINATION: General appearance: Well appearing, alert, in no acute distress, well-hydrated, well nourished. Skin: Skin color, texture, turgor normal, no suspicious rashes or lesions Head: Normocephalic, no masses, lesions, tenderness or abnormalities Lungs: Lungs clear to auscultation. No wheezing, rhonchi, rales Heart: RRR without murmur, gallop, or rubs. No ectopy Abdomen: fullness in epigastric area. Is chronic. Uncomfortable to touch. No rebound. Bowel sounds positivel Extremities: No deformities, edema, skin discoloration, clubbing or cyanosis. Good capillary refill. Musculoskeletal: No joint swelling, deformity, or tenderness Peripheral pulses: Normal ASSESSMENT/PLAN: 1. Epigastric pain - ICD9: 789.06, ICD10: R10.13 (primary diagnosis) - Red flags for re-assessment reviewed with patient in detail. - check labs. - CBC + DIFF - COMP METABOLIC PANEL - LIPASE BLD - SUCRALFATE 1 GRAM TABLET - CONSULT TO GENERAL SURGERY 2. Gastroesophageal reflux disease with esophagitis without hemorrhage - (more content not included)... [facility] 08-05-2022 History of Present illness Narrative Patient presents with: Lump HPI: Patient presents today for office visit for mass in abdomen since 01/05/00 post Hysterectomy. Was told procedure caused it. Growth has become bigger and more painful over the last six months. Causing heartburn. Severe nausea. Denies vomiting. Having regular bowel movements. Colonoscopy was recommended back in October 2021. Never completed. No bowel changes. Was told previously it was fatty tissue and had seen a plastics surgeon for the same. No chest pain or shortness of breath Previously saw had ct in 2019 fo the abdomen for the same. Had discussed with surgery and recommended surgery follow up. She did not go. Also has seen pulmonary at [facility] regarding the pulmonary findings and he discussed that it was not an issue. 1. No suspicious anterior abdominal wall cystic or solid mass, lipoma or hernia identified. 2. Incidental note made of a nonobstructing right upper quadrant enteric enteric intussusception. 3. 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 4. Significant degenerative changes at the level of T10/T11. MEDICATIONS: Current Outpatient Medications Medication Sig QUEtiapine (SEROQUEL) 100 mg tablet Take 100 mg by mouth daily at bedtime. PARoxetine (PAXIL) 20 mg tablet Take 1.5 tablets by mouth twice daily. No current facility-administered medications for this visit. 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 blockages found in heart and carotid. after cardiac stents, had a stroke and . Carotid Disease Father No Known Problems Sister No Known Problems Brother No Known Problems Maternal Grandmother No Known Problems Maternal Grandfather other (spina bifida) Daughter No Known Problems Son Social History Tobacco Use Smoking status: Every Day Packs/day: 1.00 Types: Cigarettes Smokeless tobacco: Never Tobacco comments: had quit for 3 years total, started again 07/2018 Vaping Use Vaping Use: Never used Substance Use Topics Alcohol use: Not Currently Drug use: Not Currently Comment: used heroin and cocaine in the past, last used in 2016 Reviewed current medications, allergies, past medical history, surgical history, family history and social history today. REVIEW OF SYSTEMS Having hot flashes. Wants checked for menopause. All other reviewed and negative other than HPI. HEALTH MAINTENANCE: Reviewed health maintenance issues today and recommended the following in detail. MAMMOGRAM -rec COLORECTAL CANCER SCREENING -recommended. VITALS: BP 128/86 Pulse 91 Ht 162.6 cm (5' 4 ) Wt 67.1 kg (148 lb) SpO2 96% BMI 25.40 kg/m Last 4 Encounter Wt Readings: Date: Wt: 10/05/2021 69.9 kg (154 lb) 01/13/2021 68.9 kg (152 lb) 12/29/2020 68 kg (150 lb) 12/01/2020 67.6 kg (149 lb) PHYSICAL EXAMINATION: General appearance: Well appearing, alert, in no acute distress, well-hydrated, well nourished. Skin: Skin color, texture, turgor normal, no suspicious rashes or lesions Head: Normocephalic, no masses, lesions, tenderness or abnormalities Lungs: Lungs clear to auscultation. No wheezing, rhonchi, rales Heart: RRR without murmur, gallop, or rubs. No ectopy Abdomen: fullness in epigastric area. Is chronic. Uncomfortable to touch. No rebound. Bowel sounds positivel Extremities: No deformities, edema, skin discoloration, clubbing or cyanosis. Good capillary refill. Musculoskeletal: No joint swelling, deformity, or tenderness Peripheral pulses: Normal ASSESSMENT/PLAN: 1. Epigastric pain - ICD9: 789.06, ICD10: R10.13 (primary diagnosis) - Red flags for re-assessment reviewed with patient in detail. - check labs. - CBC + DIFF - COMP METABOLIC PANEL - LIPASE BLD - SUCRALFATE 1 GRAM TABLET - CONSULT TO GENERAL SURGERY 2. Gastroesophageal reflux disease with esophagitis without hemorrhage - ICD9: 530.81, 530.10, ICD10: K21.00 - SUCRALFATE 1 GRAM TABLET - CONSULT TO GENERAL SURGERY 3. Epigastric fullness - ICD9: 789.36, ICD10: R19.06 - SUCRALFATE 1 GRAM TABLET - CONSULT TO GENERAL SURGERY 4. Mixed hyperlipidemia - ICD9: 272.2, ICD10: E78.2 - LIPID PANEL BASIC 5. Hot flashes - ICD9: 782.62, ICD10: R23.2 - FSH BLD - LUTEINIZING HORMONE - ESTRADIOL-17B BLD - TSH BLD Peewee Brizuela MD documented in this encounter [facility] 10-05-2021 Instructions Maggie Ashford APRN.COMPUTER SYSTEMS AUDITOR - 10/05/2021 3:51 PM EDT Your procedure will be at [facility] they will call you to schedule a date and time. Follow the provided instructions for colonoscopy. You will be using Miralax as the laxative during the preparation. You may start the laxative as early as 1:00 in the afternoon. The endoscopy staff will call you the day before the procedure with specific on arrival time. (Tuesday for Tuesday procedures). Start pantoprazole 40mg on empty stomach and wait 30 min before eating Pepcid 40mg at bedtime Avoid NSAIDs (such as Advil, Ibuprofen, Excedrin, Mobic), tobacco, alcohol, carbonated beverages, caffeine, chocolate, tomato based sauces, spicy/fatty foods, and peppermint Avoid eating large meals. Avoid eating less than 3 hours before bed. Weight loss. Elevate the head of the bed 6 inches, or at least invest in a wedge pillow. - if this does not help please message me on mychart - I will consider adding carafate [phone] documented in this encounter [facility] 10-05-2021 History of Present illness Narrative CHIEF COMPLAINT: Patient presents with: GERD: Worse than it has been in past. Has been treating with Nexium daily but no longer effective. Started taking it twice daily but then it stopped work. She switched to omeprazole with the same effect. Since not effective she decided to see a gastorenterologist. Heartburn Nausea This consult was requested by Mindy Pierce APRN.C* for an opinion regarding GERD symptoms. My final recommendations will be communicated to the requesting health care provider by way of the shared medical record for internal providers or letter via the [employer] for external providers. Jo Ann Galvez is a 46 year old female who presents for GERD symptoms. HPI: Patient reports worsening symptoms of Acid reflux in the bottom of her throat. She reports she is active at work and bending over and this worsens symptoms. When she sits down at home she will take TUMs and this will improve symptoms. Patient reports nausea never vomiting but close. PAtient denies bloating or feeling full fast denies weight loss. Nexium 40mg 3 months ago and reports this was not helping. Tried omeprazole 20mg OTC daily then increased to 40 mg without improvement to 60mg daily without noticing improvement. She then reports stopping PPI without weaning off. She is only taking TUMS for symptoms relief. She reports she was taking ibuprofen 200mg tablets 2-3 every morning for the past year for back pain. Recently stopped taking the last 1-2 months ago. Patient denies black stool. Blood in stool. Having a BM daily daily or every other day. Denies family history of colon cancer she reports never having a colonoscopy Patient is pack per day smoker for many years. Record Review: [facility] / Outside records reviewed. CT ABD 12/06/2018 IMPRESSION: 1. No suspicious anterior abdominal wall cystic or solid mass, lipoma or hernia identified. 2. Incidental note made of a nonobstructing right upper quadrant enteric enteric intussusception. 3. 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 4. Significant degenerative changes at the level of T10/T11. RUQ US 11/09/2018 IMPRESSION: 1. No abnormality identified in the area of patient interest. 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 heroin Major depressive disorder Malnutrition (HCC) Mitral valve disorders(424.0) Schizoaffective disorder (HCC) Unspecified asthma(493.90) PAST SURGICAL HISTORY Procedure Laterality Date CHOLECYSTECTOMY HX 2017 DILATION & CURETTAGE DX&/THER NONOBSTETRIC Dilation & curettage LIG/TRNSXJ FLP TUBE ABDL/VAG APPR UNI/BI Tubal ligation PAST SURGICAL HISTORY OF leep TOTAL ABDOMINAL HYSTERECT W/WO RMVL TUBE OVARY Hysterectomy, JOHNNA second to adenomyosis Allergies: ALLERGIES Allergen Reactions Codeine Vomiting Darvocet A500 [Prop* GI Upset Opioids - Morphine * Contraindication-Medical Surgical Hx of abuse-desires to avoid Xanax [Alprazolam] GI Upset Medications: QUEtiapine (SEROQUEL) 25 mg tablet Take 2 tablets by mouth once daily. famotidine (PEPCID) 20 mg tablet Take 1 tablet by mouth twice daily as needed. pantoprazole DR (PROTONIX) 40 mg tablet Take 1 tablet by mouth daily before breakfast. Take on empty stomach, 1/2 hr before meal. Estradiol (ESTRACE) 0.5 mg tablet Take 1 tablet by mouth once daily. PARoxetine (PAXIL) 20 mg tablet Take 1.5 tablets by mouth twice daily. polyethylene glycol 3350 (MIRALAX, GLYCOLAX) 17 gram/dose powder Use as directed for Miralax / Gatorade Bowel Prep Kit Bisacodyl (DULCOLAX) 5 mg tab Use as directed for Miralax / Gatorade Bowel Prep Kit phenazopyridine (PYRIDIUM) 200 mg tablet Take 1 tablet by mouth three times daily as needed. ondansetron orally disintegrating (ZOFRAN ODT) 4 mg disintegrating tablet Take 1 tablet by mouth every 8 hours as needed. Naproxen Sodium (ALEVE) 220 mg ORAL Tab Take one(1) tablet twice daily. as needed albuterol 90 mcg/Actuation INHALATION Aero Inhale one(1) - two(2) puffs four(4) times a day as needed for wheezing and shortness of breath. FAMILY HISTORY Problem Relation Age of Onset No Known Problems Mother Ischemic Heart Disease Father had [facility]. blockages found in heart and carotid. after cardiac stents, had a stroke and . Carotid Disease Father No Known Problems Sister No Known Problems Brother No Known Problems Maternal Grandmother No Known Problems Maternal Grandfather other (spina bifida) Daughter No Known Problems Son Employer And Job Title: None on file Years Of Education Completed: Not specified Marital Status: with 2 children Social History Tobacco Use Smoking status: Current Every Day Smoker Packs/day: 1.00 Types: Cigarettes Smokeless tobacco: Never Used Tobacco comment: had quit for 3 years total, started again 07/2018 Vaping Use Vaping Use: Never used Substance Use Topics Alcohol use: Not Currently Drug use: Not Currently Comment: used heroin and cocaine in the past, last used in 2016 Review of Systems: Review of Systems Gastrointestinal: Positive for abdominal pain and nausea. All other systems reviewed and are negative. Are you taking any blood thinners? no Physical Examination: BP 116/80 Pulse 83 Ht 5' 4.173 (1.63m) Wt 154 lb (69.9kg) SpO2 97% BMI 26.29 kg/(m^2). Physical Exam Constitutional: Appearance: Normal appearance. She is normal weight. HENT: Head: Normocephalic and atraumatic. Eyes: Extraocular Movements: Extraocular movements intact. Pupils: Pupils are equal, round, and reactive to light. Cardiovascular: Rate and Rhythm: Normal rate and regular rhythm. Pulses: Normal pulses. Heart sounds: Normal heart sounds. Pulmonary: Effort: Pulmonary effort is normal. Breath sounds: Normal breath sounds. Abdominal: General: Abdomen is flat. Bowel sounds are normal. Palpations: Abdomen is soft. Tenderness: There is abdominal tenderness in the epigastric area. Musculoskeletal: General: Normal range of motion. Cervical back: Normal range of motion and neck supple. Skin: General: Skin is warm and dry. Neurological: General: No focal deficit present. Mental Status: She is alert and oriented to person, place, and time. Psychiatric: Mood and Affect: Mood normal. Behavior: Behavior normal. ASSESSMENT: Gastroesophageal reflux disease, unspecified whether esophagitis present Bloating (primary encounter diagnosis) Nausea Colon cancer screening PLAN: Assessment/Plan (R14.0) Bloating (primary encounter diagnosis) (K21.9) Gastroesophageal reflux disease, unspecified whether esophagitis present (R11.0) Nausea (Z12.11) Colon cancer screening 1. Gastroesophageal reflux disease, unspecified whether esophagitis present -Patient presents today for evaluation of worsening GERD symptoms. Patient reports having worsening acid reflux especially with being active. She describes having burning sensation in her stomach and esophagus when she is bending over and having epigastric pain. Patient reports for the last year she has been taking ibuprofen for chronic back pain2-3 200 mg tablets daily. Patient recently stopped taking ibuprofen for the last month. She also reports was taking oetd-yjy-bekrfjn PPIs for the last 3 months and has stopped cold turkey. Today she recently saw PCP for the same symptoms was prescribed pantoprazole 40 mg and Pepcid 40 mg at bedtime. recommend EGD with biopsies - CONSULT TO GENERAL SURGERY - H PYLORI IGG AB; Future - CBC + DIFF; Future - EGD DIAGNOSTIC; Future 2. Bloating - H PYLORI IGG AB; Future - CBC + DIFF; Future - EGD DIAGNOSTIC; Future 3. Nausea - H PYLORI IGG AB; Future - CBC + DIFF; Future - EGD DIAGNOSTIC; Future 4. Colon cancer screening - polyethylene glycol 3350 (MIRALAX, GLYCOLAX) 17 gram/dose powder; Use as directed for Miralax / Gatorade Bowel Prep Kit Dispense: 238 g; Refill: 0 - Bisacodyl (DULCOLAX) 5 mg tab; Use as directed for Miralax / Gatorade Bowel Prep Kit Dispense: 4 tablet; Refill: 0 - COLONOSCOPY SCREENING; Future Follow up in office 3 months/PRN. Recommended to please call office/go to ER if fever, chills, chest pain, SOB, diarrhea, nausea, emesis, worsening abdominal pain, dehydration occurs I spent 30 minutes in the visit, with more than 50% of the total etun-cg-qgjv time of the visit in counseling / coordination of care. I have confirmed and edited as necessary, the PFSH and ROS obtained by others. Maggie Ashford APRN.CNP October 05, 2021 5:13 PM documented in this encounter [facility] 10-05-2021 Instructions Mindy Pierce APRN.CHARITO - 10/05/2021 1:18 PM EDT 1. Start the protonix daily. 2. Start the pepid (famotidine) daily. 3.. Schedule w/ general surgery. documented in this encounter [facility] 10-05-2021 History of Present illness Narrative This is a 46 year old female who presents today with: Patient presents with: Acute Visit: GI issues- increased reflux HISTORY OF PRESENT ILLNESS: Jo Ann Galvez is a 46 year old female. Patient presents with: Acute Visit: GI issues- increased reflux Pt presents today with complaint of stomach issues. Too much stomach acid. Started taking nexium again. Started taking two of the nexium, which didn't work. She changed to prilosec twice daily. This was not helpful either. Refers that she has so much stomach acid. The reflux is unreal. Notices the symptoms when she is more active. Refers that there is a big pool of heat in her throat. A couple of times, felt so high in her throat that she was going to vomit. Quit taking ibuprofen about a month ago. Stopped the PPIs cold turkey about a month ago. Sometimes will take a couple of tums, which will help. Last scope ws in 2012. Some caffeine intake. + smoker. 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 Major depressive disorder Malnutrition (HCC) Mitral valve disorders(424.0) Schizoaffective disorder (HCC) Unspecified asthma(493.90) PAST SURGICAL HISTORY Procedure Laterality Date CHOLECYSTECTOMY HX 2017 DILATION & CURETTAGE DX&/THER NONOBSTETRIC Dilation & curettage LIG/TRNSXJ FLP TUBE ABDL/VAG APPR UNI/BI Tubal ligation PAST SURGICAL HISTORY OF leep TOTAL ABDOMINAL HYSTERECT W/WO RMVL TUBE OVARY Hysterectomy, JOHNNA second to adenomyosis ALLERGIES Codeine, Darvocet A500 [Propoxyphene N-Acetaminophen], Opioids - Morphine Analogues, and Xanax [Alprazolam] MEDICATIONS Current Outpatient Medications Medication Sig Estradiol (ESTRACE) 0.5 mg tablet Take 1 tablet by mouth once daily. PARoxetine (PAXIL) 20 mg tablet Take 1.5 tablets by mouth twice daily. Naproxen Sodium (ALEVE) 220 mg ORAL Tab Take one(1) tablet twice daily. as needed QUEtiapine (SEROQUEL) 25 mg tablet Take 2 tablets by mouth once daily. phenazopyridine (PYRIDIUM) 200 mg tablet Take 1 tablet by mouth three times daily as needed. ondansetron orally disintegrating (ZOFRAN ODT) 4 mg disintegrating tablet Take 1 tablet by mouth every 8 hours as needed. albuterol 90 mcg/Actuation INHALATION Aero Inhale one(1) - two(2) puffs four(4) times a day as needed for wheezing and shortness of breath. Current Facility-Administered Medications Medication Dose Route Frequency perflutren lipid microspheres 1.3 mL in NaCl (PF) 0.9% 10 mL injection (DEFINITY) INTRAVENOUS DIRECTED PRN sodium chloride 0.9 % (flush) 10 mL (BD POSIFLUSH) 10 mL INTRAVENOUS DIRECTED PRN FAMILY HISTORY Problem Relation Age of Onset No Known Problems Mother Ischemic Heart Disease Father had [facility]. blockages found in heart and carotid. after cardiac stents, had a stroke and . Carotid Disease Father No Known Problems Sister No Known Problems Brother No Known Problems Maternal Grandmother No Known Problems Maternal Grandfather other (spina bifida) Daughter No Known Problems Son Social History Tobacco Use Smoking status: Current Every Day Smoker Packs/day: 1.00 Types: Cigarettes Smokeless tobacco: Never Used Tobacco comment: had quit for 3 years total, started again 07/2018 Vaping Use Vaping Use: Never used Substance Use Topics Alcohol use: Not Currently Drug use: Not Currently Comment: used heroin and cocaine in the past, last used in 2015 EXAM: BP 112/74 Pulse 79 Resp 18 SpO2 98% PHYSICAL EXAM: General Appearance: Well appearing, alert, in no acute distress, well-hydrated, well nourished.. Skin: Skin color, texture, turgor normal, no suspicious rashes or lesions. Head: Normocephalic, no masses, lesions, tenderness or abnormalities. Eyes: Anicteric sclera. Extraocular movements are intact. . Lungs: Lungs clear to auscultation. No wheezing, rhonchi, rales.. Heart: RRR without murmur, gallop, or rubs. No ectopy. Abd: soft, non-tender w/ + BS X 4 quads. Neurologic: Gait normal. ASSESSMENT/PLAN: 1. Gastroesophageal reflux disease, unspecified whether esophagitis present - ICD9: 530.81, ICD10: K21.9 - Begin treatment with Pepcid 20 mg and protonix. - Setup for EGD - CONSULT TO GENERAL SURGERY - FAMOTIDINE 20 MG TABLET - PANTOPRAZOLE 40 MG TABLET,DELAYED RELEASE Discussed treatment plan and patient voices understanding. Patient's questions answered appropriately. Medications and potential side effects were discussed and patient voices understanding. Return to the office as scheduled or as needed for worsening/no improvement. Mindy Pierce APRN.COMPUTER SYSTEMS AUDITOR This note was partially generated using [employer] voice recognition system. Note was reviewed for accuracy. There may be minor misspellings or grammar miscues with [employer] voice recognition. documented in this encounter [facility] documented as of this encounter (statuses as of 10/05/2021) [facility] History of Past illness Narrative* Problem Noted Date Resolved Date Piriformis syndrome 11/06/2012 11/02/2018 Lumbar radiculopathy 11/06/2012 11/02/2018 Other malaise and fatigue 09/19/20122018 Ankle pain 09/19/2012 11/02/2018 Anemia 09/15/2012 11/02/2018 documented as of this encounter (statuses as of 10/05/2021) [facility] History of Past illness Narrative* Problem Noted Date Resolved Date Piriformis syndrome 11/06/2012 11/02/2018 Lumbar radiculopathy 11/06/2012 11/02/2018 Other malaise and fatigue 09/19/20122018 Ankle pain 09/19/2012 11/02/2018 Anemia 09/15/2012 11/02/2018 documented as of this encounter (statuses as of 11/09/2021) [facility] History of Past illness Narrative* Problem Noted Date Resolved Date Piriformis syndrome 11/06/2012 11/02/2018 Lumbar radiculopathy 11/06/2012 11/02/2018 Other malaise and fatigue 09/19/20122018 Ankle pain 09/19/2012 11/02/2018 Anemia 09/15/2012 11/02/2018 documented as of this encounter (statuses as of 11/23/2021) [facility] History of Past illness Narrative* Problem Noted Date Resolved Date Piriformis syndrome 11/06/2012 11/02/2018 Lumbar radiculopathy 11/06/2012 11/02/2018 Other malaise and fatigue 09/19/20122018 Ankle pain 09/19/2012 11/02/2018 Anemia 09/15/2012 11/02/2018 documented as of this encounter (statuses as of 08/05/2022) [facility] History of Past illness Narrative* Problem Noted Date Resolved Date Piriformis syndrome 11/06/2012 11/02/2018 Lumbar radiculopathy 11/06/2012 11/02/2018 Other malaise and fatigue 09/19/20122018 Ankle pain 09/19/2012 11/02/2018 Anemia 09/15/2012 11/02/2018 documented as of this encounter (statuses as of 08/15/2022) [facility] History of Past illness Narrative* Problem Noted Date Resolved Date Piriformis syndrome 11/06/2012 11/02/2018 Lumbar radiculopathy 11/06/2012 11/02/2018 Other malaise and fatigue 09/19/20122018 Ankle pain 09/19/2012 11/02/2018 Anemia 09/15/2012 11/02/2018 documented as of this encounter (statuses as of 08/17/2022) [facility] History of Past illness Narrative* Problem Noted Date Diagnosed Date Resolved Date Piriformis syndrome 11/06/2012 11/03/19 19 Lumbar radiculopathy 11/06/2012 019 Other malaise and fatigue 09/19/2012 Ankle pain 09/19/2012 11/02/2018 Anemia 09/15/2012 11/02/2018 documented as of this encounter (statuses as of 03/23/2023) [facility] of Past illness Narrative* Problem Noted Date Diagnosed Date Resolved Date Piriformis syndrome 11/06/2012 11/03/19 19 Lumbar radiculopathy 11/06/2012 019 Other malaise and fatigue 09/19/2012 Ankle pain 09/19/2012 11/02/2018 Anemia 09/15/2012 11/02/2018 documented as of this encounter (statuses as of 04/05/2023) [facility] of Past illness Narrative* Problem Noted Date Diagnosed Date Resolved Date Piriformis syndrome 11/06/2012 11/03/19 19 Lumbar radiculopathy 11/06/2012 019 Other malaise and fatigue 09/19/2012 Ankle pain 09/19/2012 11/02/2018 Anemia 09/15/2012 11/02/2018 documented as of this encounter (statuses as of 04/09/2023) [facility] History of Past illness Narrative* Problem Noted Date Diagnosed Date Resolved Date Piriformis syndrome 11/06/2012 11/03/19 19 Lumbar radiculopathy 11/06/2012 019 Other malaise and fatigue 09/19/2012 Ankle pain 09/19/2012 11/02/2018 Anemia 09/15/2012 11/02/2018 documented as of this encounter (statuses as of 04/10/2023) [facility] History of Past illness Narrative* Problem Noted Date Diagnosed Date Resolved Date Piriformis syndrome 11/06/2012 11/03/19 19 Lumbar radiculopathy 11/06/2012 019 Other malaise and fatigue 09/19/2012 Ankle pain 09/19/2012 11/02/2018 Anemia 09/15/2012 11/02/2018 documented as of this encounter (statuses as of 04/10/2023) [facility] History of Past illness Narrative* Problem Noted Date Diagnosed Date Resolved Date Piriformis syndrome 11/06/2012 11/03/19 19 Lumbar radiculopathy 11/06/2012 019 Other malaise and fatigue 09/19/2012 Ankle pain 09/19/2012 11/02/2018 Anemia 09/15/2012 11/02/2018 documented as of this encounter (statuses as of 04/19/2023) [facility] note* Diagnosis Gastroesophageal reflux disease, unspecified whether esophagitis present- Primary documented in this encounter [facility] note* Diagnosis Bloating- Primary Flatulence, eructation, and gas pain Gastroesophageal reflux disease, unspecified whether esophagitis present Nausea Nausea alone Colon cancer screening Special screening for malignant neoplasms, colon documented in this encounter [facility] note* Diagnosis Encounter for screening mammogram for breast cancer [facility] Diagnosis Epigastric pain- Primary Abdominal pain, epigastric Gastroesophageal reflux disease with esophagitis without hemorrhage Epigastric fullness Abdominal or pelvic swelling, mass, or lump, epigastric Mixed hyperlipidemia Hot flashes Symptomatic menopausal or female climacteric states documented in this encounter [facility] note* Diagnosis Gastroesophageal reflux disease with esophagitis without hemorrhage Epigastric pain Abdominal pain, epigastric Epigastric fullness Abdominal or pelvic swelling, mass, or lump, epigastric documented in this encounter [facility] note* Diagnosis Hypokalemia- Primary Hypopotassemia Elevated alkaline phosphatase level Other nonspecific abnormal serum enzyme levels Hypertriglyceridemia Pure hyperglyceridemia documented in this encounter [facility] note* Diagnosis Sinobronchitis- Primary Unspecified sinusitis (chronic) documented in this encounter [facility] note* Diagnosis Epigastric abdominal pain- Primary Abdominal pain, epigastric Blood in stool documented in this encounter [facility] note* Diagnosis Epigastric pain- Primary Abdominal pain, epigastric Gastroesophageal reflux disease with esophagitis, unspecified whether hemorrhage Gastritis without bleeding, unspecified chronicity, unspecified gastritis type Blood in stool Acute constipation Unspecified constipation Epigastric mass Abdominal or pelvic swelling, mass, or lump, epigastric Screening for HIV (human immunodeficiency virus) Special screening examination for other specified viral diseases documented in this encounter [facility] note* Diagnosis Gastroesophageal reflux disease with esophagitis without hemorrhage- Primary Epigastric pain Abdominal pain, epigastric Epigastric fullness Abdominal or pelvic swelling, mass, or lump, epigastric documented in this encounter [facility] for referral (narrative)* Outpatient Procedure (Routine) - Pending Review Specialty Diagnoses / Procedures Referred By Len washington Referred To Contact [facility] Diagnoses Gastroesophageal reflux disease, unspecified whether esophagitis present Bloating Nausea Procedures EGD DIAGNOSTIC ESOPHAGOGASTRODUODENOSC OPY TRANSORAL DIAGNOSTIC Maggie Ashford APRN.COMPUTER SYSTEMS AUDITOR [address] [place] [address] [facility] [place] [address] [place], [place] [id number] Referral ID Status Reason Start Date Expiration Date Visits Requested Visits Authorized [id number] Pending Review Auto-Generat ed Referral 10/05/2021 10/05/2022 1 1 * Outpatient Procedure (Routine) - Pending Review Specialty Diagnoses / Procedures Referred By Len washington Referred To Contact [facility] Diagnoses Colon cancer screening Procedures COLONOSCOPY SCREENING COLONOSCOPY FLX DX W/COLLJ SPEC WHEN PFMaggie Bello APRN.COMPUTER SYSTEMS AUDITOR [address] [place] [id number] [address] Referral ID Status Reason Start Date Expiration Date Visits Requested Visits Authorized [id number] Pending Review Auto-Generat ed Referral 10/05/2021 10/05/2022 1 1 [facility] for referral (narrative)* Diagnostic Procedure Only (Routine) - Pending Review Specialty Diagnoses / Procedures Referred By Len washington Referred To Contact [facility] Diagnoses Encounter for screening mammogram for breast cancer Procedures ANDREIA SCREENING SCREENING MAMMOGRAPHY BI 2-VIEW BREAST INC CAD Peewee Brizuela MD [address] [place] [address] [facility] [address] [place] [address] Referral ID Status Reason Start Date Expiration Date Visits Requested Visits Authorized [id number] Pending Review Auto-Generat ed Referral 11/18/2021 12/18/2022 1 1 [facility] for referral (narrative)* Outpatient Procedure (Routine) - Authorized Specialty Diagnoses / Procedures Referred By Len washington Referred To Contact [facility] Diagnoses Gastroesophageal reflux disease with esophagitis without hemorrhage Epigastric pain Epigastric fullness Procedures EGD DIAGNOSTIC ESOPHAGOGASTRODUODENOSC OPY TRANSORAL DIAGNOSTIC Dom Mcfadden MD [address] [place] [address] [facility] [place] [address] [place] [address] Referral ID Status Reason Start Date Expiration Date Visits Requested Visits Authorized [id number] Authorized Auto-Generat ed Referral 08/12/2022 08/13/2023 1 1 * MRI/CT (Routine) - Authorized Specialty Diagnoses / Procedures Referred By Len washington Referred To Contact [facility] Diagnoses Gastroesophageal reflux disease with esophagitis without hemorrhage Epigastric pain Epigastric fullness Procedures CT ABD/PEL W IVCON CT ABD & PELVIS W/CONTRAST Dom Mcfadden MD [address] [place] [address] Ct [facility] Referral ID Status Reason Start Date Expiration Date Visits Requested Visits Authorized [id number] Authorized Auto-Generat ed Referral 08/13/2022 10/12/2022 1 1 [facility] for referral (narrative)* Outpatient Procedure (Routine) - Closed Specialty Diagnoses / Procedures Referred By Len washington Referred To Contact [facility] Diagnoses Gastroesophageal reflux disease with esophagitis without hemorrhage Epigastric pain Epigastric fullness Procedures EGD DIAGNOSTIC ESOPHAGOGASTRODUODENOSC OPY TRANSORAL DIAGNOSTIC Dom Mcfadden MD [address] [place] [address] [facility] [address] [place] [address] Referral ID Status Reason Start Date Expiration Date V isits Requested Visits Authorized [id number] Closed Auto-Generate d Referral 08/12/2022 08/13/2023 1 1 [facility] for visit Narrative* Outpatient Procedure (Routine) - Closed Specialty Diagnoses / Procedures Referred By Len washington Referred To Contact [facility] Diagnoses Gastroesophageal reflux disease with esophagitis without hemorrhage Epigastric pain Epigastric fullness Procedures EGD DIAGNOSTIC ESOPHAGOGASTRODUODENOSC OPY TRANSORAL DIAGNOSTIC Dom Mcfadden MD [address] [place] [address] [facility] [address] [place] [address] Referral ID Status Reason Start Date Expiration Date V isits Requested Visits Authorized [id number] Closed Auto-Generate d Referral 08/12/2022 08/13/2023 1 1 [facility] Reason for Referral Specialty Diagnoses / Procedures Referred By Len washington Referred To Contact General Surgery Diagnoses Gastroesophageal reflux disease, unspecified whether esophagitis present Procedures CONSULT TO GENERAL SURGERY OFFICE/OUTPATIENT [facility] 60-74 MINUTES Mindy Pierce, COAT PRESSER.COMPUTER SYSTEMS AUDITOR [address] [place] [address] Referral ID Status Reason Start Date Expiration Date Visits Requested Visits Authorized [id number] Pending Review PCP Requested Referral 10/05/2021 10/05/2022 1 1 Specialty Diagnoses / Procedures Referred By Len washington Referred To Contact General Surgery Diagnoses Gastroesophageal reflux disease with esophagitis without hemorrhage Epigastric pain Epigastric fullness Procedures CONSULT TO GENERAL SURGERY OFFICE/OUTPATIENT [facility] 60-74 MINUTES Peewee Brizuela MD [address] [place] [address] Referral ID Status Reason Start Date Expiration Date Visits Requested Visits Authorized [id number] Pending Review PCP Requested Referral 08/05/2022 08/05/2023 1 1 Specialty Diagnoses / Procedures Referred By Contac t Referred To Contact General Surgery Diagnoses Epigastric pain Gastroesophageal reflux disease with esophagitis without hemorrhage Gastritis without bleeding, unspecified chronicity, unspecified gastritis type Gastroesophageal reflux disease with esophagitis, unspecified whether hemorrhage Blood in stool Acute constipation Epigastric mass Procedures CONSULT TO GENERAL SURGERY OFFICE/OUTPATIENT [facility] 60-74 MINUTES Peewee Brizuela MD [address] [place] [address] Referral ID Status Reason Start Date Expiration Date Visits Requested Visits Authorized [id number] Pending Review PCP Requested Referral 04/08/2023 04/07/2024 1 1 Specialty Diagnoses / Procedures Referred By Contac t Referred To Contact CT IMAGING Diagnoses Epigastric pain Blood in stool Epigastric mass Procedures CT ABD/PEL W IVCON CT ABD & PELVIS W/CONTRAST Peewee Brizuela MD [address] [place] [address] [place] [address] Referral ID Status Reason Start Date Expiration Date Visits Requested Visits Authorized [id number] Pending Review Auto-Generat ed Referral 04/08/2023 2024 1 1 [facility] Diagnoses / [facility] Diagnoses Epigastric pain Acute constipation Procedures XR ABDOMEN 1V SUPINE RADIOLOGIC EXAM ABDOMEN 1 VIEW Peewee Brizuela MD [address] [place] [address] [place] [address] Referral ID Status Reason Start Date Expiration Date V isits Requested Visits Authorized [id number] Closed Auto-Generate d Referral 04/08/2023 2024 1 1 Summary Purpose Family History No Family History Records FoundNo Family History Records Found Advance Directives No Advanced Directives Records FoundNo Advanced Directives Records Found Medications Administered Section Inactive Administered Medications - up to 3 most recent administrations Medication Order MAR Action Action Date Dose Rate Site benzocaine 20% 1 [place] (TOPEX) 1 [place], TOPICAL, DIRECTED, Starting on Tue09/28/22 at 1000, Until Tue09/28/22 at 1359, DOSING DIRECTED BY PHYSICIAN FOR PROCEDURAL SEDATION ONLY - Pharmaceutical Waste: Aerosol -, Intraprocedure Given by LIP 09/28/2022 9:30 AM EDT 3 Sprays fentaNYL 50 mcg/mL 25-100 mcg injection (SUBLIMAZE) 25-100 mcg, INTRAVENOUS, DIRECTED, Starting on Tue09/28/22 at 1000, Until Tue09/28/22 at 1359, DOSING DIRECTED BY PHYSICIAN FOR PROCEDURAL SEDATION ONLY, Intraprocedure Given by LIP 09/28/2022 9:35 AM EDT 50 mcg Additional Source Comments Source Comments (unrecognize d section and content) In the event this informatio n is protected by the Federal Confidentiality of Alcohol and Drug Abuse Patient Records regulations: The Federal rules restrict any use of the information to criminally investigate or prosecute any alcohol or drug abuse patient.[facility] the event this information is protected by the Federal Confidentiality of Alcohol and Drug Abuse Patient Records regulations: The Federal rules restrict any use of the information to criminally investigate or prosecute any alcohol or drug abuse patient.[facility] the event this information is protected by the Federal Confidentiality of Alcohol and Drug Abuse Patient Records regulations: The Federal rules restrict any use of the information to criminally investigate or prosecute any alcohol or drug abuse patient.[facility] the event this information is protected by the Federal Confidentiality of Alcohol and Drug Abuse Patient Records regulations: The Federal rules restrict any use of the information to criminally investigate or prosecute any alcohol or drug abuse patient.[facility] the event this information is protected by the Federal Confidentiality of Alcohol and Drug Abuse Patient Records regulations: The Federal rules restrict any use of the information to criminally investigate or prosecute any alcohol or drug abuse patient.[facility] the event this information is protected by the Federal Confidentiality of Alcohol and Drug Abuse Patient Records regulations: The Federal rules restrict any use of the information to criminally investigate or prosecute any alcohol or drug abuse patient.[facility] the event this information is protected by the Federal Confidentiality of Alcohol and Drug Abuse Patient Records regulations: The Federal rules restrict any use of the information to criminally investigate or prosecute any alcohol or drug abuse patient.[facility] the event this information is protected by the Federal Confidentiality of Alcohol and Drug Abuse Patient Records regulations: The Federal rules restrict any use of the information to criminally investigate or prosecute any alcohol or drug abuse patient.[facility] the event this information is protected by the Federal Confidentiality of Alcohol and Drug Abuse Patient Records regulations: The Federal rules restrict any use of the information to criminally investigate or prosecute any alcohol or drug abuse patient.[facility] Hospital[facility] the event this information is protected by the Federal Confidentiality of Alcohol and Drug Abuse Patient Records regulations: The Federal rules restrict any use of the information to criminally investigate or prosecute any alcohol or drug abuse patient.[facility] the event this information is protected by the Federal Confidentiality of Alcohol and Drug Abuse Patient Records regulations: The Federal rules restrict any use of the information to criminally investigate or prosecute any alcohol or drug abuse patient.[facility]In the event this information is protected by the Federal Confidentiality of Alcohol and Drug Abuse Patient Records regulations: The Federal rules restrict any use of the information to criminally investigate or prosecute any alcohol or drug abuse patient.[facility] HospitalIn the event this information is protected by the Federal Confidentiality of Alcohol and Drug Abuse Patient Records regulations: The Federal rules restrict any use of the information to criminally investigate or prosecute any alcohol or drug abuse patient.[facility] Reason for Visit (unrecogniz ed section and content) Reason Comments GERD Worse than it has be en in past. Has been treating with Nexium daily but no longer effective. Started taking it twice daily but then it stopped work. She switched to omeprazole with the same effect. Since not effective she decided to see a gastorenterologist. Heartburn Nausea Specialty Diagnoses / Procedures Referred By Len [place] Referred To Contact General Surgery Diagnoses Gastroesophageal reflux disease, unspecified whether esophagitis present Procedures CONSULT TO GENERAL SURGERY OFFICE/OUTPATIENT [facility] MDM 60-74 MINUTES Mindy Pierce, COAT PRESSER.COMPUTER SYSTEMS AUDITOR [address] [place] [address] Referral ID Status Reason Start Date Expiration Date Visits Requested Visits Authorized [id number] Pending Review PCP Requested Referral 10/05/2021 10/05/2022 1 1 Reason Comments Lump Reason Comments Consult Mass on abdomen Specialty Diagnoses / Procedures Referred By Contac t Referred To Contact General Surgery Diagnoses Gastroesophageal reflux disease with esophagitis without hemorrhage Epigastric pain Epigastric fullness Procedures CONSULT TO GENERAL SURGERY OFFICE/OUTPATIENT [facility] 60-74 MINUTES Peewee Brizuela MD [address] [place] [address] Referral ID Status Reason Start Date Expiration Date Visits Requested Visits Authorized [id number] Pending Review PCP Requested Referral 08/05/2022 08/05/2023 1 1 Reason Comments Results Reason Comments Nasal Congestion drainage, cough, sor e throat and fatigue x 11 days Reason Comments Follow Up Specialty Diagnoses / Procedures Referred By Contac t Referred To Contact CT IMAGING Diagnoses Gastroesophageal reflux disease with esophagitis without hemorrhage Epigastric pain Epigastric fullness Procedures CT ABD/PEL W IVCON CT ABD & PELVIS W/CONTRAST Dom Mcfadden MD [address] [facility] [place] [id number] Imaging [facility] Referral ID Status Reason Start Date Expiration Date V isits Requested Visits Authorized [id number] Closed Auto-Generate d Referral 08/13/2022 10/12/2022 1 1 Reason Comments Radiology NM Specialty Diagnoses / Procedures Referred By Contac t Referred To Contact MOLECULAR & FUNCTIONAL IMAGING Diagnoses Dyspepsia Procedures NM GASTRIC EMPTYING SOLID GASTRIC EMPTYING STUDY Hoang Weathers PA-C [address] [place] [address] Molecular & Functional Imaging [address] [place] [address] Referral ID Status Reason Start Date Expiration Date V isits Requested Visits Authorized [id number] Closed Auto-Generate d Referral 10/07/2022 12/06/2022 1 1 Care Teams (unrecognized sec tion and content) Brand Activation Manager Relationship Specialty Start Date End Date Peewee Brizuela MD [address] [place] [address] PCP - General Family Practice 09/11/12 Brand Activation Manager Relationship Specialty Start Date End Date Peewee Brizuela MD [address] [place] [address] PCP - General Family Practice 09/11/12 Brand Activation Manager Relationship Specialty Start Date End Date Peewee Brizuela MD [address] [place] [address] PCP - General Family Practice 09/11/12 Brand Activation Manager Relationship Specialty Start Date End Date Peewee Brizuela MD [address] [place] [address] PCP - General Family Medicine 09/11/12 Brand Activation Manager Relationship Specialty Start Date End Date Peewee Brizuela MD [address] [place] [address] PCP - General Family Medicine 09/11/12 Brand Activation Manager Relationship Specialty Start Date End Date Peewee Brizuela MD [address] [place] [address] PCP - General Family Medicine 09/11/12 Brand Activation Manager Relationship Specialty Start Date End Date Peewee Brizuela MD [address] [place] [address] PCP - General Family Medicine 09/11/12 Brand Activation Manager Relationship Specialty Start Date End Date Peewee Brizuela MD [address] [place] [address] PCP - General Family Medicine 09/11/12 Brand Activation Manager Relationship Specialty Start Date End Date Peewee Brizuela MD [address] [place] [address] PCP - General Family Medicine 09/11/12 Brand Activation Manager Relationship Specialty Start Date End Date Peewee Brizuela MD [address] [place] [address] PCP - General Family Medicine 09/11/12 Brand Activation Manager Relationship Specialty Start Date End Date Peewee Brizuela MD [address] [place] [address] PCP - General Family Medicine 09/11/12 Brand Activation Manager Relationship Specialty Start Date End Date Peewee Brizuela MD [address] [place] [address] PCP - General Family Medicine 09/11/12 INFORMATION SOURCE (unrecogn ized section and content) DATE CREATED AUTHOR AUTHOR'S ORGANIZ ATION 07/03/2023 [facility] FOR RECORDS PERTAINING TO PATIENTS WHO ARE OR HAVE BEEN ENROLLED IN A CHEMICAL DEPENDENCY/SUBSTANCEABUSE PROGRAM, SOME INFORMATION MAY BE OMITTED. This clinical summary was aggregated from multiple sources. Caution should be exercised in using it in the provision of clinical care. This summary normalizes information from multiple sources, and as a consequence, information in this document may materially change the coding, format and clinical context of patient data. In addition, data may be omitted in some cases. CLINICAL DECISIONS SHOULD BE BASED ON THE PRIMARY CLINICAL RECORDS. [facility]. provides no warranty or guarantee of the accuracy or completeness of information in this document.
== END 2023-07-05 18:00 | disposition left against medical advice (07) ==
LOC: ED 18:08
PROVIDERS: PCP Family Medicine
DX: Z53.21 Procedure and treatment not carried out due to patient leaving prior to being seen by health care provider (principal)